=== PATIENT | male | born 1965 | race Caucasian/White ===

== ENCOUNTER → 2018-08-19 | Outpatient (CLI) | payer OTHER ==
[~2018-08-19] MED LIST: AMLO10TA8 PO; ASPI81TA59 PO; BUPIVACAINE MPF 0.25% 10 ML VIAL. ONE; CHLO4TAB20 PO; CLON0.1T PO; CYCL10TA2 PO; FLUT9.9S NS; GABA600T PO; HYDR-2145 PO; HYDR-2769 PO; IOHEXOL 180 MG/ML 10 ML VIAL. ONE; LISI-130 PO; NAPR-683 PO; SPIR25TA5 PO; VERA240C2 PO; methylPREDNISolone ACETATE 40 MG/ML VIAL. ONE; methylPREDNISolone ACETATE 80 MG/ML VIAL. ONE
--- NOTE | 2018-08-20 02:47 | PAIN ---
DATE OF SERVICE: 08/19/2018 INITIAL CONSULTATION FOR PAIN CLINIC CHIEF COMPLAINT: Low back pain. HISTORY OF PRESENT ILLNESS: This is a 52-year-old male who presents with history of pain in the low back for about 20 years, worse over the past 1 to 1-1/2 years. The patient reports no specific injury or action he is aware of, but the increasing pain in the low back. Several years ago, he did have some treatment for the back, which was helpful; in 2017 had some trigger point injections; did have radiofrequency ablation, which helped for about a year and a half he reports that was prior to the trigger points. The patient reports now the pain is returning again over the past several months, getting much worse, essentially right equal to left. The patient reports the pain is stabbing, shooting, constant, no radiation to the lower extremity, just across the low back, right equal to left essentially; worse with standing, with extension of the lumbar spine; better with forward flexion; wakes him from sleep about 2-3 times a night; does not affect his bowel or bladder control, but does affect his ability to walk, again no radiation to the lower extremities. The patient has tried chiropractic treatment as well as exercise, which she does stretching currently without significant decrease in pain. The patient has been taking cyclobenzaprine as well as hydrocodone, both of those he has taken yesterday and today, which do decrease the pain by about 50%. The patient reports a disability rate from 0-10, 10 being the worst, is 8 with family and home responsibilities, 10 with recreation, 6 with social activity, 9 with occupation and sexual behavior and 6 with self-care and life support activities, especially sleeping. The patient has had no other current treatments or therapies at this time, but again is doing some stretching and exercise on his own. The patient reports pain is better with sitting or resting, but does awaken him from sleep and is significantly increased with extension of the lumbar spine, with any type of reaching over his head or sitting upright in a chair. He is slouching because it feels better to go forward with his low back and notices his posture is changed. The patient did have MRI scan of the lumbar spine, this was 08/2014, slight annular bulging L5-S1, mild degenerative changes in the facet joints L3-L4 and L4-L5, mild degenerative changes in the adjacent facet joint L5-S1 as well. PAST MEDICAL HISTORY: Significant for hearing loss; hypertension; sleep apnea; cigarette smoking, quit 16 years ago; dizziness; stroke; arthritis; osteoporosis. PREVIOUS SURGERY: Include appendectomy and tonsillectomy in the past. TPA for stroke in 2010, which was successful. CURRENT MEDICATIONS: Include hydrocodone, verapamil, daily baby aspirin, lisinopril/hydrochlorothiazide, Naprosyn, Neurontin, chlorpheniramine, Flonase inhaler, amlodipine, clonidine, and cyclobenzaprine. ALLERGIES: THE PATIENT IS ALLERGIC TO PENICILLIN. FAMILY HISTORY: Significant for heart disease. SOCIAL HISTORY: The patient quit smoking many years ago, drinks alcohol about 8 ounces 3 times a week on average. Does not use any illegal, illicit or recreational drugs. He is and lives with his spouse, lives locally in [place], [place]. REVIEW OF SYSTEMS: The patient's review of systems is positive for those items mentioned in history of present illness. All systems reviewed and otherwise negative. It is complete, full and well documented on the patient's chart. PHYSICAL EXAMINATION: VITAL SIGNS: The blood pressure is 135/91, pulse 72, respirations 16, temperature 98.5 degrees fahrenheit, height is 5 feet 8 inches, weight is 264 pounds. GENERAL: The patient is awake, alert, oriented, appropriate, very pleasant demeanor. HEENT: Head shows normocephalic, atraumatic. Extraocular movements are intact and symmetrical. Oral cavity: Mucous membranes moist and pink. Dentition is intact. NECK: Shows anterior throat supple without palpable lymphadenopathy noted. Swallow reflex symmetrical. CHEST: Shows normal with inspection. Breath sounds clear to auscultation bilaterally. HEART: Shows S1, S2 clear. No murmurs auscultated. ABDOMEN: Obese, soft, nontender, nondistended. No palpable organomegaly is noted. No rebound or guarding demonstrated. BACK: Shows spine grossly in the midline, slight exaggerated thoracic kyphosis, normal cervical lordotic curvature. Lumbar lordotic curvature is slightly flattened as well. The patient's lumbar paraspinous muscle shows symmetrical on inspection; with palpation shows some moderate tenderness inferiorly bilaterally, but only diffusely without radiation. No trigger points, no specific radiation of pain, no tenderness over the spinous processes, sacrum or sacroiliac regions. The patient shows good rotation of motion, but moderate tenderness with right and left lateral rotation greater than 10 degrees and significant tenderness with extension greater than 10 degrees posteriorly, better with forward flexion at 45 degrees without significant pain reported. EXTREMITIES: Lower extremities show deep tendon reflexes at 2+ in the patellar, 1+ tendo calcaneus tendons. Motor exam is strong with 5/5 dorsiflexion, extension, quadriceps and hamstring flexion equal. Peripheral pulses are 1+ posterior tibia. No peripheral edema is noted bilaterally. Straight leg raise noted to be negative for reproduction of radicular symptoms. Gaenslen's and Dwight's maneuvers are negative bilaterally as well. Lower extremities are warm and dry to touch, equal in color and appearance. No peripheral edema noted. SKIN: The patient's skin is warm and dry, good turgor. No edema. No sores, rashes or bruising throughout. NEUROLOGIC: The patient is able to stand, stand on his toes without significant difficulty or loss of balance, walks with a normal appearing gait for short distance in the office, not using any assistive devices such as canes or walkers to ambulate. IMPRESSION: This is a 52-year-old male with: 1. Long history of low back pain, worse over the past year or so, without any specific injury or accident. 2. Old MRI scans as noted from 2014 and 2015. 3. Hypertension. 4. Sleep apnea. 5. Arthritis. PLAN: Options were discussed with the patient including conservative medical management, physical therapy and interventional techniques. He would like to pursue interventional techniques as he has done well with these in the past. We discussed lumbar facet joint injections using description as well as anatomical models to describe the procedure. Risks were then discussed including, but not limited to bleeding, infection, possibility of epidural hematoma and subsequent neurological compromise, dural puncture, headaches, spinal cord and/or nerve damage, side effects of steroid medication and poor results regarding pain control. The patient understands and wished to proceed. The patient will return to the clinic in approximately 2 weeks for followup. We did discuss potential radiofrequency ablation if the patient does very well with these as he has in the past and he has benefited from the radiofrequency ablation in the past as well. We will discuss this once the procedure is completed on followup and the patient will keep us informed and was asked to call the clinic in approximately 2-3 days with progress report at that time. DIAGNOSIS: Lumbar and lumbosacral spondylosis. PROCEDURE: Bilateral L4-L5 and L5-S1 facet joint injection using C-arm fluoroscopic guidance under sterile prep and drape using local anesthetic. MEDICATION INJECTED: A total of 120 mg Depo-Medrol plus total of 4 mL of 0.25% bupivacaine and total of 2 mL of contrast. CONDITION AT DISCHARGE: Stable. The patient tolerated the procedure well, had no complications. BONY LEON MD DR: RASHAUN/lewis JOB#: [id number] / [id number]
== END | disposition home or self-care (01) ==
LOC: PNCL 08:50
PROVIDERS: ATTEND Anesthesiology
DX: M47.817 Spondylosis without myelopathy or radiculopathy, lumbosacral region (principal); I10 Essential (primary) hypertension; M19.90 Unspecified osteoarthritis, unspecified site; G47.30 Sleep apnea, unspecified; Z88.0 Allergy status to penicillin; Z86.73 Personal history of transient ischemic attack (TIA), and cerebral infarction without residual deficits; M81.0 Age-related osteoporosis without current pathological fracture; H91.90 Unspecified hearing loss, unspecified ear; Z87.891 Personal history of nicotine dependence; Z90.49 Acquired absence of other specified parts of digestive tract; Z98.890 Other specified postprocedural states; Z79.82 Long term (current) use of aspirin; Z79.899 Other long term (current) drug therapy; Z82.49 Family history of ischemic heart disease and other diseases of the circulatory system; Z72.89 Other problems related to lifestyle
CPT/HCPCS: 64493; 64494; J1030; J1040; J3490; Q9965

== ENCOUNTER → 2018-09-03 | Outpatient (CLI) | payer OTHER ==
[~2018-09-03] MED LIST changes: -IOHEXOL 180 MG/ML 10 ML VIAL. ONE; +LIDOCAINE 1% PF 2 ML VIAL. ONE; +LIDOCAINE 2% PF 5 ML VIAL. ONE
--- NOTE | 2018-09-03 23:47 | PAIN ---
DATE OF SERVICE: 09/03/2018 DIAGNOSES: Lumbar degenerative disk disease with lumbar and lumbosacral spondylosis. HISTORY OF PRESENT ILLNESS: The patient is a 52-year-old male, who returns for followup status post bilateral L4-L5 and L5-S1 facet joint injections. The patient did very well with about a 90% improvement after the last injection. The patient reports he did very well. Pain returned, however, after about 2 weeks or so. The patient reports now pain across the low back bilaterally, right equal to left, essentially worse with walking, standing and changing positions, with prolonged sitting, better with lying down, but awakening him from sleep about every 6 hours. The patient reports the pain is a 7 on a scale of 10 at its worst, 5 on average, 4 at its least, and is a 5 today. The patient reports sharp, shooting, stabbing, becoming more severe with sitting and radiating across the low back, but not into the lower extremity significantly. The patient reports no new motor or sensory deficits. No new bowel or bladder incontinence or other complaints. PHYSICAL EXAMINATION: VITAL SIGNS: The patient's blood pressure is 125/87, pulse 83, respirations 16, temperature 98.2 degrees Fahrenheit, weight is 259 pounds. GENERAL: The patient is awake, alert, oriented, appropriate, very pleasant demeanor. HEENT: Shows normocephalic, atraumatic. Extraocular movements are intact and symmetrical. Oral cavity: Mucous membranes moist and pink. Dentition is intact. NECK: Shows anterior throat supple without palpable lymphadenopathy noted. Swallow reflex is symmetrical. CHEST: Shows normal on inspection. Breath sounds are clear to auscultation bilaterally. HEART: Shows S1 and S2 clear. No murmurs auscultated. ABDOMEN: Soft, nontender and nondistended. No palpable organomegaly is noted. No rebound or guarding demonstrated. BACK: Shows spine grossly in the midline. Normal appearing thoracic kyphosis and lumbar lordotic curvature. Lumbar paraspinous muscle shows symmetrical on inspection. On palpation shows some moderate tenderness diffusely, but only diffusely without significant radiation. The patient has good rotational motion with some moderate tenderness with right and left lateral rotation greater than 10 degrees as well as significant tenderness with extension greater than 10 degrees posteriorly, but better with forward flexion, with decreased pain at 45 degrees. EXTREMITIES: The patient's lower extremities shows deep tendon reflexes at 2+ in the patellar, 1+ tendo calcaneus tendons and equal. Motor exam is strong with 5/5 dorsiflexion, extension, quadriceps and hamstring flexion. Peripheral pulses are 1+ posterior tibia. No peripheral edema is noted bilaterally. Options were discussed with the patient. The patient's old chart was reviewed as was his current medication regimen updated. Current review of systems is updated today as well. We will proceed with radiofrequency ablation of the bilateral L4-L5 and L5-S1 medial branches. Risks were again discussed including but not limited to bleeding, infection, possibility of epidural hematoma and subsequent neurological compromise, dural puncture, headaches, spinal cord and/or nerve damage, potential damage from thermal ablation to surrounding structures as well as permanent motor damage as well as poor results regarding pain control and exposure to fluoroscopy. The patient understands and wished to proceed. The patient will return to the clinic in approximately 3 weeks for followup, was counseled on return appointment, activity level and side effects to be aware of. DIAGNOSIS: Lumbar and lumbosacral spondylosis. PROCEDURE: Bilateral L4-L5 and L5-S1 medial branch radiofrequency ablation using C-arm fluoroscopic guidance under sterile prep and drape using local anesthetic. MEDICATION INJECTED: A total of 6 mL of 2% lidocaine after motor testing and prior to radiofrequency ablation, 1 mL at each level after negative aspiration, a total of 6 mL of 0.25% bupivacaine and 120 mg Depo-Medrol after radiofrequency ablation. CONDITION AT DISCHARGE: Stable. The patient tolerated the procedure well, had no complications. Please see radiofrequency flowsheet for location, levels, times, temperature, impedance, etc. BONY LEON MD DR: RASHAUN/lewis JOB#: [id number] / [id number]
== END | disposition home or self-care (01) ==
LOC: PNCL 12:34
PROVIDERS: ATTEND Anesthesiology
DX: M47.817 Spondylosis without myelopathy or radiculopathy, lumbosacral region (principal); M51.36 Other intervertebral disc degeneration, lumbar region; Z88.0 Allergy status to penicillin
CPT/HCPCS: 64635; 64636; J1030; J1040; J2001; J3490

== ENCOUNTER → 2019-05-03 | Outpatient (CLI) | payer OTHER ==
[~2019-05-03] MED LIST changes: +IOHEXOL 180 MG/ML 10 ML VIAL. ONE; -LIDOCAINE 1% PF 2 ML VIAL. ONE; -LIDOCAINE 2% PF 5 ML VIAL. ONE
--- NOTE | 2019-05-03 08:44 | PAIN ---
DATE OF SERVICE: 05/03/2019 PROGRESS NOTE FOR PAIN CLINIC DIAGNOSES: Lumbar degenerative disk disease and lumbar and lumbosacral spondylosis. HISTORY OF PRESENT ILLNESS: The patient is a 53-year-old male who returns for followup status post radiofrequency ablation and facet joint injections, last seen 09/03/2018. The patient did very well with about 75% improvement for 3-4 months after the injection. The patient reports the pain is returning now over the past 2-3 weeks in the low back and into the posterior gluteus bilaterally across the low back, most significantly, worse with walking, standing, change in positions, wakes him from sleep at least 1-2 hours every night. The patient reports that 10 on a scale of 10 at its worst over the past week, 8 on average, 5 at its least and is an 8 today. The patient reports it is sharp, shooting, stabbing, severe, unbearable, radiating across the low back, worse with standing and extension, especially. The patient reports that time he gets out of his truck, his pain is significant after he has been sitting for prolonged periods, greater than an hour or so. The patient reports no new motor or sensory deficits, no new bowel or bladder incontinence, but significant pain across the low back, very similar to that was last spring. PHYSICAL EXAMINATION: VITAL SIGNS: The patient's blood pressure is 125/83, pulse 73, respirations 18, temperature 98.7 degrees Fahrenheit, height is 5 feet 8 inches, weight is 268 pounds. GENERAL: The patient is awake, alert, oriented, appropriate, very pleasant demeanor. HEENT: Shows normocephalic, atraumatic. Extraocular movements are intact and symmetrical. Oral cavity shows mucous membranes moist and pink. Dentition is intact. NECK: Shows anterior throat supple without palpable lymphadenopathy noted. CHEST: Shows normal on inspection. Breath sounds are clear bilaterally. HEART: Shows S1, S2 clear. No murmurs auscultated. ABDOMEN: Obese and soft, nontender, nondistended. No palpable organomegaly is noted. No rebound or guarding demonstrated. BACK: The patient's back shows a slight exaggeration of thoracic kyphosis and minor flattening of lumbar lordotic curvature. Lumbar paraspinous muscle shows symmetrical on inspection, with palpation shows some moderate tenderness diffusely bilaterally and diffusely without significant radiation. The patient shows good rotational motion, but significant tenderness with extension of the lumbar spine as well as significant pain with axial loading of the lumbar spine, better with forward flexion, which was performed to 45 degrees without significant difficulty. Right and left lateral rotation shows some moderate tenderness diffusely bilaterally, right equal to left essentially but with a moderate increase in pain as well. EXTREMITIES: The patient's lower extremities show deep tendon reflexes 2+ in the patellar, 1+ tendo-calcaneus tendons. Motor exam is strong with 5/5 dorsiflexion, extension, quadriceps and hamstring flexion. Peripheral pulses are 1+ posterior tibia. No peripheral edema is noted bilaterally. Options were discussed with the patient. The patient's old chart was reviewed as his current medication regimen updated. Current review of systems updated today as well. We will proceed today with bilateral L4-L5 and L5-S1 facet joint injections using fluoroscopic guidance. Risks were again discussed including, but not limited to bleeding, infection, possibility of epidural hematoma, subsequent neurological compromise, dural puncture, headaches, spinal cord and/or nerve damage, side effects of steroid medication and poor results regarding pain control. The patient understands and wished to proceed. The patient will return to clinic in approximately 2 weeks for followup. We did discuss potential radiofrequency ablation in the future as well as he did very well with this in the past. We will see how he does with the injections today and follow up for potential radiofrequency ablation as well. DIAGNOSIS: Lumbar degenerative disk disease with lumbar and lumbosacral spondylosis. PROCEDURE: Bilateral L4-L5 and L5-S1 facet joint injections using C-arm fluoroscopic guidance under sterile prep and drape using local anesthetic. MEDICATION INJECTED: A total of 120 mg Depo-Medrol plus 4 mL of 0.25% bupivacaine and 2 mL total of contrast. CONDITION AT DISCHARGE: Stable. The patient tolerated procedure well, had no complications. BONY LEON MD DR: RASHAUN/lewis JOB#: [id number] / [id number]
== END ==
LOC: PNCL 07:23
PROVIDERS: ATTEND Anesthesiology
DX: M51.17 Intervertebral disc disorders with radiculopathy, lumbosacral region (principal); M47.817 Spondylosis without myelopathy or radiculopathy, lumbosacral region
CPT/HCPCS: 64493; 64494; J1030; J1040; J3490; Q9965

== ENCOUNTER → 2019-05-25 | Outpatient (CLI) | payer OTHER ==
[~2019-05-25] MED LIST changes: +LIDOCAINE 1% PF 2 ML VIAL. ONE; +LIDOCAINE 2% PF 5 ML VIAL. ONE
--- NOTE | 2019-05-26 00:05 | PAIN ---
DATE OF SERVICE: 05/25/2019 PROGRESS NOTE FOR PAIN CLINIC DIAGNOSES: Lumbar degenerative disk disease and lumbar and lumbosacral spondylosis. HISTORY OF PRESENT ILLNESS: The patient is a 53-year-old male who returns for followup status post previous lumbar facet joint injections with good results and status post radiofrequency ablation on 09/03/2018 with about 75% improvement as well for 3-4 months following the injection. The patient had the pain returning. We discussed this with him on 05/03/2019 and we will repeat radiofrequency ablation. He has received approval with his insurance provider and would like to proceed. He still has some pain in the low back and mid back, right essentially equal to left, but present bilaterally. The patient reports his left side is slightly worse with walking, standing, changing positions, especially with extension of the lumbar spine and axial loading of the lumbar vertebrae and facets. The patient reports his pain is a 10 on a scale of 10 at its worst over the past week, 7 on average, 5 at its least and is a 7 today, pressure, aching, sharp, dull, shooting across the low back, severe stabbing and radiating in the back itself, but not into the lower extremities. The patient reports no new motor or sensory deficits. Reports it is better with sitting or lying down, generally does not awaken him from sleep at night. PHYSICAL EXAMINATION: VITAL SIGNS: The patient's blood pressure is 164/61, pulse is 87, respirations 16, temperature 98.1 degrees Fahrenheit, height is 5 feet 8 inches, weight is 269 pounds. GENERAL: The patient is awake, alert, oriented, appropriate, very pleasant demeanor. HEENT: Shows normocephalic, atraumatic. Extraocular movements are intact and symmetrical. Oral cavity shows mucous membranes are moist and pink. Dentition is intact. NECK: Shows anterior throat supple without palpable lymphadenopathy noted. Swallow reflex symmetrical. CHEST: Shows normal on inspection. Breath sounds are clear bilaterally. HEART: Shows S1, S2 clear. No murmurs auscultated. ABDOMEN: Soft, nontender, nondistended. No palpable organomegaly is noted. No rebound or guarding demonstrated. BACK: Shows spine grossly in the midline. Normal appearing thoracic kyphosis and some minor flattening of lumbar lordotic curvature. Lumbar paraspinous musculature shows symmetrical on inspection, on palpation shows some moderate tenderness diffusely bilaterally, going diffusely without significant radiation. The patient has good rotational motion of lumbar spine, both laterally as well as extension and flexion with some moderate tenderness with extension and relieving with forward flexion at 45 degrees, right and left lateral rotation shows moderate tenderness bilaterally as well 10 degrees right and left essentially equal. EXTREMITIES: Lower extremities show deep tendon reflexes at 2+ in the patellar, 1+ tendo-calcaneus tendons. Motor exam is strong with 5/5 dorsiflexion, extension, quadriceps and hamstring flexion symmetrical. Peripheral pulses are 1+ posterior tibia. No peripheral edema is noted bilaterally. PLAN: Options were discussed with the patient. The patient's old chart was reviewed as his current medication regimen updated. Current review of systems is updated today as all. We will proceed with bilateral L4-L5 and L5-S1 facet medial branch radiofrequency ablation. Risks were again discussed including, but not limited to bleeding, infection, possibility of epidural hematoma, subsequent neurological compromise, dural puncture, headaches, spinal cord and/or nerve damage, possible thermal damage to the surrounding nerves including motor nerves with permanent damage and motor damage as well as poor results regarding pain control and exposure of fluoroscopy. The patient understands and wished to proceed. The patient will return to clinic in approximately 3 weeks for followup. He was counseled on return appointment, activity level and side effects to be aware of. DIAGNOSIS: Lumbar and lumbosacral spondylosis. PROCEDURE: Radiofrequency ablation bilaterally at L4-L5 and L5-S1 facet medial branches under sterile prep and drape using local anesthetic. MEDICATION INJECTED: A total of 6 mL of 0.25% bupivacaine after radiofrequency ablation combined with 120 mg total of Depo-Medrol, also 2% lidocaine injected 6 mL total of 1 mL at each level after motor testing, but prior to radiofrequency ablation. Please see radiofrequency flow sheet for times, levels, impedances, temperatures and durations. CONDITION AT DISCHARGE: Stable. The patient tolerated the procedure well, had no complications. BONY LEON MD DR: RASHAUN/lewis JOB#: [id number] / [id number]
== END | disposition home or self-care (01) ==
LOC: PNCL 12:53
PROVIDERS: ATTEND Anesthesiology
DX: M51.36 Other intervertebral disc degeneration, lumbar region (principal); M47.816 Spondylosis without myelopathy or radiculopathy, lumbar region; Z98.890 Other specified postprocedural states; Z88.0 Allergy status to penicillin
CPT/HCPCS: 64635; 64636; J1030; J1040; J2001; J3490; Q9965

== ENCOUNTER → 2019-06-22 | Outpatient (CLI) | payer OTHER ==
[~2019-06-22] MED LIST changes: -BUPIVACAINE MPF 0.25% 10 ML VIAL. ONE; -IOHEXOL 180 MG/ML 10 ML VIAL. ONE; -LIDOCAINE 1% PF 2 ML VIAL. ONE; -LIDOCAINE 2% PF 5 ML VIAL. ONE; -methylPREDNISolone ACETATE 40 MG/ML VIAL. ONE; -methylPREDNISolone ACETATE 80 MG/ML VIAL. ONE
--- NOTE | 2019-06-22 12:45 | PAIN ---
DATE OF SERVICE: 06/22/2019 PROGRESS NOTE FOR PAIN CLINIC DIAGNOSES: Lumbar degenerative disk disease with lumbar and lumbosacral spondylosis. HISTORY OF PRESENT ILLNESS: The patient is a 53-year-old male who returns for followup status post radiofrequency ablation, bilateral L4-L5 and L5-S1 medial branches. The patient reports about 75% improvement overall increasing his activity with greater ease and comfort, has been working at full capacity with greater ease as well. The patient reports he is sleeping better at night. Reports he is very pleased with his progress. The patient reports he has pain in his right knee; however, rates it at 10 on a scale of 10 over the past week. His back pain; however, is about a 5 on average and a 3 at its least and is a 5 today. The patient reports it is aching in the knee and some dull pain in the back, but that is almost the pain in his knee is shooting, stabbing, severe and unbearable and the back is just aching and dull and fairly well controlled. The patient reports no new motor or sensory deficits, no new bowel or bladder incontinence or other complaints. PHYSICAL EXAMINATION: VITAL SIGNS: The patient's blood pressure 130/85, pulse 74, respirations are 18, temperature is 98.3 degrees Fahrenheit, height is 5 feet 8 inches, weight is 269 pounds. GENERAL: The patient is awake, alert, oriented, appropriate, very pleasant demeanor. HEENT: Shows normocephalic, atraumatic. Extraocular movements are intact and symmetrical. Oral cavity shows mucous membranes moist and pink. Dentition is intact. NECK: Shows anterior throat supple without palpable lymphadenopathy noted. Swallow reflex symmetrical. CHEST: Shows normal on inspection. Breath sounds clear. HEART: Shows S1, S2 clear. ABDOMEN: Soft, nontender. BACK: Shows spine grossly in midline. Lumbar paraspinous muscle shows symmetrical on inspection, with palpation shows some very mild tenderness in the low lumbar distribution only without radiation. The patient shows full rotational motion of lumbar spine with some minor tenderness with extension, but not with forward flexion, right and left lateral rotation is nontender as well past 10 degrees. EXTREMITIES: The patient's lower extremities show deep tendon reflexes at 2+ in the patellar, 1+ in the tendo-calcaneus tendons. Motor exam is strong with 5/5 dorsiflexion, extension, quadriceps and hamstring flexion and symmetrical. Peripheral pulses are 1+. No peripheral edema is noted. Options were discussed with the patient. The patient's old chart was reviewed as his current medication regimen updated. Current review of systems updated today as well. We will hold on any further injections at this time. The patient was encouraged to increase his activity as tolerated with caution as well with the low back with lifting and stretching exercises. The patient is also having significant pain in his knees wearing a knee brace on his right knee today and is following up with his orthopedic surgeon regarding a brace for the left knee as well and if possible replacement surgery in the future also. BONY LEON MD DR: RASHAUN/lewis JOB#: [id number] / [id number]
== END | disposition home or self-care (01) ==
LOC: PNCL 11:12
PROVIDERS: ATTEND Anesthesiology
DX: M47.817 Spondylosis without myelopathy or radiculopathy, lumbosacral region (principal); M51.36 Other intervertebral disc degeneration, lumbar region
CPT/HCPCS: G0463

== ENCOUNTER → 2020-01-07 | Outpatient (CLI) | payer OTHER ==
[~2020-01-07] MED LIST changes: +BUPIVACAINE MPF 0.25% 10 ML VIAL. ONE; +IOHEXOL 180 MG/ML 10 ML VIAL. ONE; +methylPREDNISolone ACETATE 40 MG/ML VIAL. ONE; +methylPREDNISolone ACETATE 80 MG/ML VIAL. ONE
--- NOTE | 2020-01-07 12:04 | PDOC ---
Progress Note - Pain Clinic Date of Service: DOS: DATE: 01/07/20 TIME: 12:00 Diagnosis: Dx: Lumbar degenerative disc disease with lumbar and lumbosacral spondylosis History or Present Illness: HPI: 54-year-old male returns follow-up status post bilateral lumbar facet radi ofrequency ablation May 25, 2019. Patient was about 75% improvement the pain is now returning over the past 3 to 4 weeks in the low back bilaterally right essentially equal to left worse with activity walking standing changing position especially with axial loading and extension of the lumbar spine when he is working bending and standing up again. Patient reports pain up to this point was doing very well increase his activity walking doing work activities household activities greater ease and comfort travel with greater ease and comfort patient reports now is returning in the low back bilaterally rates a 10 on scale 10 is worse over the past week 10 on average 8 its least is a 10 today patient was aching and sharp shooting across the back stabbing constant and severe at times. Patient reports no new motor or sensory deficits no new bowel or bladder incontinence or other complaints. Physical Exam: VS: Blood pressure is 130/83 pulse 74 respirations 18 temperature is 98.6 F height is 5 foot 8 inches weight is 275 pounds PE: PHYSICAL EXAMINATION: GENERAL: The patient is awake, alert, oriented, appropriate, very pleasant demeanor HEENT: Shows normocephalic, atraumatic. Extraocular movements are intact and symmetrical. Oral cavity: Mucous membranes moist and pink. NECK: Shows anterior throat supple without palpable lymphadenopathy noted. Swallow reflex symmetrical. CHEST: Shows normal on inspection. Breath sounds are clear bilaterally, no rales rhonchi or wheezes auscultated. HEART: Shows S1, S2 clear. No murmurs auscultated. ABDOMEN: Soft, nontender, nondistended, obese. No palpable organomegaly is noted. No rebound or guarding demonstrated. BACK: Shows spine grossly in the midline. Normal-appearing cervical lordotic curvature. There is slightly increased thoracic kyphosis, some minor flattening of the lumbar lordotic curvature. Lumbar paraspinous muscles show symmetrical on inspection, on palpation shows some moderate tenderness diffusely throughout the upper, middle and lower distribution of the paraspinous muscles bilaterally, but without specific trigger points, without radiation of pain. The patient has good rotational motion of the lumbar spine, but with significant pain with extension of the lumbar spine past 10 degrees better with forward flexion 45 degrees but still some mild pain right left lateral rotation shows moderate pain bilaterally in the low back itself but without radiation 10 degrees right and the left. No tenderness over the spinous processes, sacrum or sacroiliac regions. EXTREMITIES: Lower extremities show deep tendon reflexes 2+ in the patellar and tendo calcaneus tendons. Motor exam is 5 on a scale of 5 with right dorsiflexion, extension, quadriceps and hamstring flexion and 5/5 on the left. Peripheral pulses are 1+ posterior tibial. No peripheral edema is noted bilaterally. Lower extremities are warm and dry to touch, equal in color and appearance. SKIN: Shows warm and dry, good turgor. No edema. No sores, rashes or bruising throughout. Procedure: Procedure: Options were discussed with the patient. Patient will chart reviewed his his current medication regimen updated current review of systems updated today as well. We will proceed with bilateral facet joint injections at the L4-5 and L5- S1 levels. Risks were discussed including but not limited to: Bleeding, infection, possibility of epidural hematoma and subsequent neurological compromise, dural puncture, headaches, spinal cord and/or nerve damage, side effects of steroid medication, and poor results regarding pain control. Patient understands wished to proceed. Patient return to clinic in approximately 2 weeks for follow-up. We did discuss potential radiofrequency ablation if patient has good decrease in pain as he has had in the past with the injections today. Medication Injected: Med Injected: Under sterile prep and drape using C-arm fluoroscopic guidance AP and lateral and oblique views, bilateral L4-5 and L5-S1 facet joint injections, medications injected: 120 mg Depo-Medrol +4 cc 0.25% bupivacaine +2 cc contrast. Condition at discharge stable patient tolerated the procedure well and no complications. Condition at Discharge: Condition at Discharge: Condition at discharge is stable, patient tolerated procedure well, had no complications. BONY LEON MD Jan 07, 2020 12:04
== END | disposition home or self-care (01) ==
LOC: PNCL 10:52
PROVIDERS: ATTEND Anesthesiology
DX: M51.16 Intervertebral disc disorders with radiculopathy, lumbar region (principal); M47.817 Spondylosis without myelopathy or radiculopathy, lumbosacral region; M47.816 Spondylosis without myelopathy or radiculopathy, lumbar region; I10 Essential (primary) hypertension; Z88.0 Allergy status to penicillin; Z79.82 Long term (current) use of aspirin; Z79.899 Other long term (current) drug therapy
CPT/HCPCS: 64635; 64636; J1030; J1040; J3490; Q9965

== ENCOUNTER → 2020-01-25 | Outpatient (CLI) | payer OTHER ==
[~2020-01-25] MED LIST changes: -IOHEXOL 180 MG/ML 10 ML VIAL. ONE; +LIDOCAINE 1% PF 2 ML VIAL. ONE; +LIDOCAINE 2% PF 5 ML VIAL. ONE
--- NOTE | 2020-01-25 14:41 | PDOC ---
Progress Note - Pain Clinic Date of Service: DOS: DATE: 01/25/20 TIME: 14:34 Diagnosis: Dx: Lumbar and lumbosacral spondylosis History or Present Illness: HPI: 54-year-old male returns status post lumbar facet medial branch blocks with approximate 90% improvement 2 to 3 weeks following his last injections. Patient reports he did very well with increased activity greater ease and comfort walking greater distances doing household activities work activities with much greater ease sleeping better at night as well. Patient ports pain began to return now over the past week with pain across the low back bilaterally somewhat worse on the right than the left but present bilaterally without radiation into the lower extremities. Patient which is aching sharp shooting stabbing constant severe radiating across the back but not into the lower extremities and can be unbearable with extended standing walking. Patient reports better with sitting or laying down but has been waking from sleep about every 4-5 hours over the past week or so. Patient reports no new motor or sensory deficits no new bowel or bladder incontinence or other complaints. Physical Exam: VS: Pressure is 133/80 pulse 90 respirations 20 temperature is 98.4 F weight is 269 pounds PE: PHYSICAL EXAMINATION: GENERAL: The patient is awake, alert, oriented, appropriate, very pleasant demeanor HEENT: Shows normocephalic, atraumatic. Extraocular movements are intact and symmetrical. NECK: Shows anterior throat supple without palpable lymphadenopathy noted. Swallow reflex symmetrical. CHEST: Shows normal on inspection. Breath sounds are clear bilaterally, no rales rhonchi or wheezes HEART: Shows S1, S2 clear. No murmurs auscultated. ABDOMEN: Soft, nontender, nondistended ,obese. No palpable organomegaly is noted. No rebound or guarding demonstrated. BACK: Shows spine grossly in the midline. Normal-appearing cervical lordotic curvature. There is slightly increased thoracic kyphosis, some minor flattening of the lumbar lordotic curvature. Lumbar paraspinous muscles show symmetrical on inspection, on palpation shows some moderate tenderness diffusely throughout the upper, middle and lower distribution of the paraspinous muscles bilaterally without radiation of pain. The patient has good rotational motion of the lumbar spine, with moderate tenderness bilaterally with greater than 10 degrees right and left lateral rotation as well as significant increase in pain with extension and axial loading of the lumbar spine greater than 10 degrees decreased with forward flexion at 45 degrees performed without difficulty. No tenderness over the spinous processes, sacrum or sacroiliac regions. EXTREMITIES: Lower extremities show deep tendon reflexes 2+ in the patellar and tendo calcaneus tendons. Motor exam is 5 on a scale of 5 with right dorsiflexion, extension, quadriceps and hamstring flexion and 5/5 on the left. Peripheral pulses are 1+ posterior tibial. No peripheral edema is noted bilaterally. Lower extremities are warm and dry to touch, equal in color and appearance. SKIN: Shows warm and dry, good turgor. No edema. No sores, rashes or bruising throughout. Procedure: Procedure: Options were discussed with the patient. Patient's old chart was reviewed his current medication regimen updated current review of systems updated today as well. We will proceed with bilateral radiofrequency ablation of the L4-5, and L5-S1 medial branches. Risks were discussed including but not limited to: Bleeding, infection, possibility of epidural hematoma and subsequent neurological compromise, dural puncture, headaches, spinal cord and/or nerve damage, side effects of steroid medication, potential thermal injury to the surrounding structures as well as permanent motor damage, and poor results regarding pain control. Patient understands wished to proceed. Patient will return to clinic in approximately 4 weeks for follow-up was counseled as to return appointment activity level and side effects to be aware of. Medication Injected: Med Injected: Under sterile prep and drape patient in prone position using C-arm fluoroscopic guidance patient's lumbar spine was visualized in both AP oblique and lateral views using 1% lidocaine to topically anesthetize the areas overlying the L3-4, L4-5 and L5-S1 facet joints at the point of the medial branches. Using a 22-ga uge insulated radiofrequency needle with curved tips and stylette, the needles were advanced to contact the region of the facet with the medial branch targets. This was repeated at the L3-4 L4-5 and L5-S1 levels. Stylette is removed and using radiofrequency probe inserted into each needle individually at each level and then motor tested with no motor stimulation of the lower extremity. Patient did have some multifidus musculature contraction in the lumbar spine only but without radiation. At this time 1 cc of 2% lidocaine was then injected in each needle after motor testing but prior to radiofrequency ablation. Needle position was confirmed continuously throughout the radiofrequency ablation with both AP oblique and lateral views at each level. At this time radiofrequency ablation was carried out each level for 60 seconds at 80 C x 2 at each level with the tip of the needle turned 90 degrees after the first 60 seconds and then subsequent 60 seconds of radiofrequency ablation. Once radiofrequency ablation was completed solution containing 0.25% bupivacaine 1 cc and 20 mg Depo-Medrol was injected each level. Needle was then withdrawn. The procedure was repeated for the contralateral side as described as well. Patient had no paresthesias throughout the procedure no radiation of pain into the lower extremities, no lower extremity motor response with motor testing bilaterally. Condition at Discharge: Condition at Discharge: Condition at discharge stable patient tolerated procedure well had no complications. BONY LEON MD Jan 25, 2020 14:41
== END | disposition home or self-care (01) ==
LOC: PNCL 12:54
PROVIDERS: ATTEND Anesthesiology
DX: M47.817 Spondylosis without myelopathy or radiculopathy, lumbosacral region (principal); Z88.0 Allergy status to penicillin; Z79.82 Long term (current) use of aspirin; Z79.899 Other long term (current) drug therapy
CPT/HCPCS: 64635; 64636; J1030; J1040; J3490

== ENCOUNTER → 2020-02-22 | Outpatient (CLI) | payer OTHER ==
[~2020-02-22] MED LIST changes: +AMLO-187 PO; -AMLO10TA8 PO; -BUPIVACAINE MPF 0.25% 10 ML VIAL. ONE; -LIDOCAINE 1% PF 2 ML VIAL. ONE; -LIDOCAINE 2% PF 5 ML VIAL. ONE; -methylPREDNISolone ACETATE 40 MG/ML VIAL. ONE; -methylPREDNISolone ACETATE 80 MG/ML VIAL. ONE
--- NOTE | 2020-02-22 10:37 | PDOC ---
Progress Note - Pain Clinic Date of Service: DOS: DATE: 02/22/20 TIME: 10:34 Diagnosis: Dx: Lumbar degenerative disc disease with lumbar and lumbosacral spondylosis History or Present Illness: HPI: 54-year-old male returns follow-up status post radiofrequency ablation medial branches of the L4-5 and L5-S1 levels bilaterally. Patient reports doing very well about 90% improvement after the radiofrequency ablation with still good lasting pain relief in the low back patient reports he can increase activity with greater ease and comfort doing household activities work activities walking with greater ease and comfort sleeping much better does not awaken her from sleep patient reports his pain is a 7 on scale 10 is worse over the past week 2 on average 1 its least is a 1 today. Patient ports is aching and dull in the low back radiating bilaterally in the back but not into the lower extremities. Patient reports no new motor or sensory deficits no new bowel or bladder incontinence is very pleased with his progress. Physical Exam: VS: Blood pressure is 120/74 pulse 79 respirations 18 temperature 98.0 F weight is 265 pounds PE: PHYSICAL EXAMINATION: GENERAL: The patient is awake, alert, oriented, appropriate, very pleasant de meanor HEENT: Shows normocephalic, atraumatic. Extraocular movements are intact and symmetrical. NECK: Shows anterior throat supple without palpable lymphadenopathy noted. Swallow reflex symmetrical. CHEST: Shows normal on inspection. Breath sounds are clear bilaterally. HEART: Shows S1, S2 clear. No murmurs auscultated. ABDOMEN: Soft, nontender, nondistended, obese. No palpable organomegaly is noted. No rebound or guarding demonstrated. BACK: Shows spine grossly in the midline. Normal-appearing cervical lordotic curvature. There is slightly increased thoracic kyphosis, some minor flattening of the lumbar lordotic curvature. Lumbar paraspinous muscles show symmetrical on inspection, on palpation shows some moderate tenderness diffusely throughout the upper, middle and lower distribution of the paraspinous muscles bilaterally but without specific trigger points, without radiation of pain. The patient has good rotational motion of the lumbar spine, both laterally as well as extension and flexion without significant difficulty, and with only mild pain with extension and axial loading of the lumbar spine. No tenderness over the spinous processes, sacrum or sacroiliac regions. EXTREMITIES: Lower extremities show deep tendon reflexes 2+ in the patellar and tendo calcaneus tendons. Motor exam is 5 on a scale of 5 with right dorsiflexion, extension, quadriceps and hamstring flexion and 5/5 on the left. Peripheral pulses are 1+ posterior tibial. No peripheral edema is noted bilaterally. Lower extremities are warm and dry to touch, equal in color and appearance. SKIN: Shows warm and dry, good turgor. No edema. No sores, rashes or bruising throughout. Procedure: Procedure: Options were discussed with the patient. Patient will chart was reviewed his his current medication regimen updated current review of systems updated today as well. We will hold on any further procedures at this time as patient doing quite well with the results from his radiofrequency ablation. Patient will follow-up at this time on as-needed basis and was counseled as to activity level as well as daily exercise routine stretching and strengthening. Medication Injected: Med Injected: None Condition at Discharge: Condition at Discharge: Patient discharge is stable BONY LEON MD Feb 22, 2020 10:37
== END ==
LOC: PNCL 09:44
PROVIDERS: ATTEND Anesthesiology
DX: M51.16 Intervertebral disc disorders with radiculopathy, lumbar region (principal); M47.816 Spondylosis without myelopathy or radiculopathy, lumbar region; M47.817 Spondylosis without myelopathy or radiculopathy, lumbosacral region; I10 Essential (primary) hypertension; Z88.0 Allergy status to penicillin; Z79.82 Long term (current) use of aspirin; Z79.899 Other long term (current) drug therapy
CPT/HCPCS: 99212; G0463

== ENCOUNTER → 2020-03-20 | Outpatient (CLI) | payer OTHER ==
[~2020-03-20] MED LIST changes: +BUPIVACAINE MPF 0.25% 10 ML VIAL. ONE; +IOHEXOL 180 MG/ML 10 ML VIAL. ONE; +methylPREDNISolone ACETATE 40 MG/ML VIAL. ONE; +methylPREDNISolone ACETATE 80 MG/ML VIAL. ONE
--- NOTE | 2020-03-20 09:12 | PDOC ---
Progress Note - Pain Clinic Date of Service: DOS: DATE: 03/20/20 TIME: 09:08 Diagnosis: Dx: Lumbar and lumbosacral spondylosis Lumbar degenerative disc disease History or Present Illness: HPI: 54-year-old male returns in follow-up status post radiofrequency ablation bila teral L4-5 and L5-S1 medial branches on 02/24/2020. Patient reports did very well with near 90% improvement pain returning now over the past week to 2 weeks has been increasing his activity at work with significant physical strain on the low back. Patient ports the pain began returning gradually in the low back itself without radiation to the lower extremities. Patient rates pain is a 10 on scale 10 is worse over the past week 5 on average 3 at its least and is a 5 today patient describes aching sharp tight shooting across the back dull and tight alternating and stabbing in the back as well as worse at night been waking from sleep frequently patient ports as long as he keeps changing positions and stays on his feet it somewhat manageable but is becoming worse with activity especially with work activities. Initially patient doing very well with distance walking doing household activities work activities traveling with greater ease and comfort now the pain is returning fairly significantly especially disturbing his sleep. Patient reports no new motor or sensory deficits no new bowel or bladder incontinence. Physical Exam: VS: Blood pressure is 125/79 pulse 99 respirations are 16 temperature 90.1 F height is 5 feet 8 inches weight is 269 pounds PE: PHYSICAL EXAMINATION: GENERAL: The patient is awake, alert, oriented, appropriate, very pleasant demeanor HEENT: Shows normocephalic, atraumatic. Extraocular movements are intact and symmetrical. Oral cavity: Mucous membranes moist and pink. NECK: Shows anterior throat supple without palpable lymphadenopathy noted. Swallow reflex symmetrical. CHEST: Shows normal on inspection. Breath sounds are clear bilaterally. HEART: Shows S1, S2 clear. No murmurs auscultated. ABDOMEN: Soft, nontender, nondistended, obese. No palpable organomegaly is noted. No rebound or guarding demonstrated. BACK: Shows spine grossly in the midline. Normal-appearing cervical lordotic curvature. There is slightly increased thoracic kyphosis, some minor flattening of the lumbar lordotic curvature. Lumbar paraspinous muscles show symmetrical on inspection, on palpation shows some moderate tenderness diffusely throughout the upper, middle and lower distribution of the paraspinous muscles bilaterally, without specific trigger points, without radiation of pain. The patient has good rotational motion of the lumbar spine, both laterally as well as extension and flexion, with moderate pain with extension and axial loading the lumbar spine also slightly worse right greater than left rotation past 10 degrees but performed fully forward flexion is performed without significant difficulty. No tenderness over the spinous processes, sacrum or sacroiliac regions. EXTREMITIES: Lower extremities show deep tendon reflexes 2+ in the patellar and tendo calcaneus tendons. Motor exam is 5 on a scale of 5 with right dorsiflexio n, extension, quadriceps and hamstring flexion and 5/5 on the left. Peripheral pulses are 1+ posterior tibial. No peripheral edema is noted bilaterally. Lower extremities are warm and dry to touch, equal in color and appearance. SKIN: Shows warm and dry, good turgor. No edema. No sores, rashes or bruising throughout. Procedure: Procedure: Options discussed with the patient. Patient chart was reviewed his his current medication regimen updated current review of systems updated today as well. We will proceed with bilateral L4-5 and L5-S1 facet joint injections today with fluoroscopic guidance. Risks were discussed including but not limited to: Bleeding, infection, possibility of epidural hematoma and subsequent neurolo gical compromise, dural puncture, headaches, spinal cord and/or nerve damage, side effects of steroid medication, and poor results regarding pain control. Patient understands wished to proceed. Patient will return to clinic in approximate 2 weeks for follow-up was counseled as to return appointment activity level and side effects to be aware of. Medication Injected: Med Injected: Under sterile prep and drape using C-arm fluoroscopic guidance AP and lateral and oblique views, bilateral L4-5 and L5-S1 facet joint injections were performed, medications injected: 120 mg Depo-Medrol +4 cc 0.25% bupivacaine +2 cc contrast. Condition at discharge stable patient tolerated the procedure well and no complications. Condition at Discharge: Condition at Discharge: Condition at discharge stable, patient tolerated procedure well and had no complications. BONY LEON MD Mar 20, 2020 09:12
== END | disposition home or self-care (01) ==
LOC: PNCL 08:21
PROVIDERS: ATTEND Anesthesiology
DX: M51.36 Other intervertebral disc degeneration, lumbar region (principal); M47.817 Spondylosis without myelopathy or radiculopathy, lumbosacral region; Z79.82 Long term (current) use of aspirin; Z79.899 Other long term (current) drug therapy; Z88.0 Allergy status to penicillin
CPT/HCPCS: 64493; 64494; J1030; J1040; J3490; Q9965; 64635; 64636

== ENCOUNTER → 2020-05-05 | Outpatient (CLI) | payer OTHER ==
--- NOTE | 2020-05-05 09:41 | PDOC ---
Progress Note - Pain Clinic Date of Service: DOS: DATE: 05/05/20 TIME: 09:37 Diagnosis: Dx: Lumbar and lumbosacral spondylosis with lumbar degenerative disc disease History or Present Illness: HPI: 54-year-old male returns for follow-up status post bilateral L4-5 and L5-S1 facet joint injections most recently seen March 20, 2020. Patient reports that 80% improvement for the first month or so and the pain is gradually been returning over the past few weeks in the low back itself slightly worse on the left than the right but present bilaterally patient reports no radiation to the lower extremities is across the low back rated as a 10 on scale 10 is worse over the past week 8 on average 7 its least and is a 8 today. Patient was aching sharp tight shooting stabbing can be constant and severe across the low back worse with extension lumbar spine axial loading of the low back especially with standing for prolonged periods better with sitting but for more than about an hour the patient's pain returns. Patient ports better at night but it wakes him from sleep at least once or twice a night most nights. Patient reports no new motor or sensory deficits no new bowel or bladder incontinence or other complaints. Physical Exam: VS: Blood pressure is 149/85 pulse 80 respirations 18 temperature is 90.3 F height is 5 feet 8 inches weight is 273 pounds PE: PHYSICAL EXAMINATION: GENERAL: The patient is awake, alert, oriented, appropriate, very pleasant demeanor HEENT: Shows normocephalic, atraumatic. Extraocular movements are intact and symmetrical. Oral cavity: Mucous membranes moist and pink. NECK: Shows anterior throat supple without palpable lymphadenopathy noted. CHEST: Shows normal on inspection. Breath sounds are clear bilaterally, no rales or rhonchi. HEART: Shows S1, S2 clear. No murmurs auscultated. ABDOMEN: Soft, nontender, nondistended, obese. No palpable organomegaly is noted. BACK: Shows spine grossly in the midline. Normal-appearing cervical lordotic curvature. There is increased thoracic kyphosis, some flattening of the lumbar lordotic curvature. Lumbar paraspinous muscles show symmetrical with inspection, on palpation shows some moderate tenderness diffusely throughout the upper, middle and lower distribution of the paraspinous muscles, but without specific trigger points, without radiation of pain. The patient has good rotational motion of the lumbar spine, with increased pain noted with extension greater than 10 degrees significantly more the left than the right also with right and left lateral rotation shows significant tenderness greater than 10 degrees with rotation to the left greater than right but present bilaterally with pain experienced in all rotations except for forward flexion was performed 45 degrees without difficulty. No tenderness over the spinous processes, sacrum or sacroiliac regions. EXTREMITIES: Lower extremities show deep tendon reflexes 2+ in the patellar and tendo calcaneus tendons. Motor exam is 5 on a scale of 5 with right dorsifl exion, extension, quadriceps and hamstring flexion and 5/5 on the left. Peripheral pulses are 1+ posterior tibial. No peripheral edema is noted bilaterally. Lower extremities are warm and dry to touch, equal in color and appearance. SKIN: Shows warm and dry, good turgor. No edema. No sores, rashes or bruising throughout. Procedure: Procedure: Options were discussed with the patient. Patient chart reviewed his his current medication regimen updated current review of systems updated today as well. We will proceed with bilateral L4-5 and L5-S1 facet joint injections today with fluoroscopic guidance. Risks were discussed including but not limited to: Bleeding, infection, possibility of epidural hematoma and subsequent regina rological compromise, dural puncture, headaches, spinal cord and/or nerve damage, side effects of steroid medication, and poor results regarding pain control. Patient understands wished to proceed. Patient will return to clinic in approximately 2 weeks for follow-up, was counseled as return appointment activity level, and side effects to be aware of. Medication Injected: Med Injected: Under sterile prep and drape using C-arm fluoroscopic guidance AP and lateral and oblique views, bilateral L4-5 and L5-S1 facet joint injections were performed, medications injected: 120 mg Depo-Medrol +4 cc 0.25% bupivacaine +2 cc contrast. Condition at discharge stable patient tolerated the procedure well and no complications. Condition at Discharge: Condition at Discharge: Condition at discharge is stable, patient tolerated procedure well and had no complications. BONY LEON MD May 05, 2020 09:41
== END | disposition home or self-care (01) ==
LOC: PNCL 09:03
PROVIDERS: ATTEND Anesthesiology
DX: M47.817 Spondylosis without myelopathy or radiculopathy, lumbosacral region (principal); M51.36 Other intervertebral disc degeneration, lumbar region; Z79.82 Long term (current) use of aspirin; Z79.899 Other long term (current) drug therapy; Z88.0 Allergy status to penicillin
CPT/HCPCS: 64493; 64494; J1030; J1040; J3490; Q9965; 64635-50; 64636-50

== ENCOUNTER → 2020-06-09 | Outpatient (CLI) | payer OTHER ==
[~2020-06-09] MED LIST changes: -methylPREDNISolone ACETATE 40 MG/ML VIAL. ONE
--- NOTE | 2020-06-09 09:02 | PDOC ---
Progress Note - Pain Clinic Date of Service: DOS: DATE: 06/09/20 TIME: 08:56 Diagnosis: Dx: Right biceps tendinitis with right shoulder joint pain Lumbar degenerative disc disease with lumbar and lumbosacral spondylosis History or Present Illness: HPI: 54-year-old male returns follow-up status post bilateral lumbar facet medial branch blocks. Patient reports did very well about 80% improvement for several weeks after the injection but the pain is returning in the low back bilaterally patient's chief complaint today however is his right shoulder joint which is very painful with any rotation of motion or weight lifting weightbearing repetitive movements difficult to drive the car with the arm as well patient reports awakening from sleep at night better 5 to 6 hours of the right shoulder and significant tenderness of the anterior aspect of the shoulder with any movement or weight resistance. Patient reports it is aching and sharp tight and shooting in the arm radiating to the anterior biceps with stabbing pain that can be constant and severe with repetitive movement and weightbearing. Patient rates the pain is a 10 on scale 10 is worse on average 3 its least is an 8 today. Patient's low back shows significant tenderness with rotation of motion as well as extension but much better after the last injection but returning significantly bilaterally. Patient reports no new motor or sensory deficits no new bowel or bladder incontinence. Physical Exam: VS: Blood pressure is 129/83 pulse 75 respirations 18 temperature is 98.8 F height is 6 foot weight is 272 pounds PE: PHYSICAL EXAMINATION: GENERAL: The patient is awake, alert, oriented, appropriate, very pleasant demeanor HEENT: Shows normocephalic, atraumatic. Extraocular movements are intact and symmetrical. NECK: Shows anterior throat supple without palpable lymphadenopathy noted. Swallow reflex symmetrical. CHEST: Shows normal on inspection. Breath sounds are clear bilaterally. HEART: Shows S1, S2 clear. No murmurs auscultated. ABDOMEN: Soft, nontender, nondistended, obese. No palpable organomegaly is noted. BACK: Shows spine grossly in the midline. Normal-appearing cervical lordotic curvature. There is increased thoracic kyphosis, some flattening of the lumbar lordotic curvature. Lumbar paraspinous muscles show symmetrical on inspection, on palpation shows some moderate tenderness diffusely throughout the upper, middle and lower distribution of the paraspinous muscles bilaterally and also into the lower thoracic paraspinous musculature, firm and tender, but without specific trigger points, without radiation of pain. The patient has good rotational motion of the lumbar spine, with moderate tenderness with the right and left lateral rotation greater than 10 degrees as well as significant tenderness with extension at 10 degrees and axial loading of low back but better with 45 degrees forward flexion. No tenderness over the spinous processes, sacrum or sacroiliac regions. EXTREMITIES: Lower extremities show deep tendon reflexes 2+ in the patellar and tendo calcaneus tendons. Motor exam is 5 on a scale of 5 with right dorsiflexion, extension, quadriceps and hamstring flexion and 5/5 on the left. Peripheral pulses are 1+ posterior tibial. No peripheral edema is noted bilaterally. Lower extremities are warm and dry to touch, equal in color and appearance. 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 With palpation of the right shoulder shows significant tenderness over the anterior aspect of the deltoid and consistent with the biceps tendon insertion on the right side very tender with palpation and some minor radiation into the bicep muscle itself. Left side is nontender. SKIN: Shows warm and dry, good turgor. No edema. No sores, rashes or bruising throughout. Procedure: Procedure: Options were discussed with the patient. Patient chart reviews his current medication regimen updated current review of systems updated today as well. We will proceed with a right-sided biceps tendon injection today with fluoroscopic guidance. Risk were discussed including but not limited to bleeding infection possibility of intravascular injection sequelae spread local anesthetic and numbness side effects steroid medication exposure fluoroscopy and portal scarring pain control. Patient understands wished to proceed patient return to clinic in approximately 2 weeks for follow-up was counseled as return appointment activity level and side effects to be aware of. Medication Injected: Med Injected: Under sterile prep and drape patient's right shoulder was sterilely prepped and draped using C-arm fluoroscopic guidance patient's humerus was identified and insertion site of the biceps tendon identified using 1% lidocaine was topically anesthetized over this region of significant tenderness corresponding to the radiograph fluoroscopy. Using a 22-gauge needle under direct fluoroscopic vision, contact of the humerus at the biceps insertion site was identified using contrast 1.5 cc showed good spread along the biceps tendon insertion sheath without washout or uptake. At this time 3 cc of 0.25% bupivacaine and 80 mg Depo-Medrol was then injected. Needle was removed sterile bandage was applied. Patient tolerated procedure well had no complications. Condition at Discharge: Condition at Discharge: Condition at discharge stable, patient tolerated procedure well and had no complications. BONY LEON MD Jun 09, 2020 09:02
--- NOTE | 2020-06-09 09:03 | PDOC4 ---
PROCEDURE Procedure Patient was consented for right shoulder biceps tendon injection. Risks were discussed including but not limited to bleeding infection possibility of intravascular injection sequelae spread of local anesthetic and numbness side effects steroid medication exposure fluoroscopy and portals regarding pain control. Patient understands wished to proceed. Under sterile prep and drape patient's right shoulder was sterilely prepped and draped using C-arm fluoroscopic guidance patient's humerus was identified and insertion site of the biceps tendon identified using 1% lidocaine was topically anesthetized over this region of significant tenderness corresponding to the radiograph fluoroscopy. Using a 22-gauge needle under direct fluoroscopic vision, contact of the humerus at the biceps insertion site was identified using contrast 1.5 cc showed good spread along the biceps tendon insertion sheath without washout or uptake. At this time 3 cc of 0.25% bupivacaine and 80 mg Depo-Medrol was then injected. Needle was removed sterile bandage was applied. Patient tolerated procedure well had no complications. BONY LEON MD Jun 09, 2020 09:03
== END | disposition home or self-care (01) ==
LOC: PNCL 08:17
PROVIDERS: ATTEND Anesthesiology
DX: M25.511 Pain in right shoulder (principal); M75.21 Bicipital tendinitis, right shoulder; M51.36 Other intervertebral disc degeneration, lumbar region; M47.817 Spondylosis without myelopathy or radiculopathy, lumbosacral region; Z79.82 Long term (current) use of aspirin; Z79.899 Other long term (current) drug therapy; Z88.0 Allergy status to penicillin
CPT/HCPCS: 20610; 77002; J1040; J3490; Q9965; 20605

== ENCOUNTER → 2020-07-24 | Outpatient (CLI) | payer OTHER ==
[~2020-07-24] MED LIST changes: -IOHEXOL 180 MG/ML 10 ML VIAL. ONE; +LIDOCAINE 1% PF 2 ML VIAL. ONE; +LIDOCAINE 2% PF 5 ML VIAL. ONE; +methylPREDNISolone ACETATE 40 MG/ML VIAL. ONE
--- NOTE | 2020-07-24 14:30 | PDOC ---
Progress Note - Pain Clinic Date of Service: DOS: DATE: 07/24/20 TIME: 14:25 Diagnosis: Dx: Lumbar degenerative disc disease with lumbar and lumbosacral spondylosis Right shoulder joint pain with osteoarthritis Biceps tendinitis History or Present Illness: HPI: 54-year-old male returns for follow-up status post lumbar facet joint injections most recently May 05, 2020. Patient had very good results about 75 to 80% improvement after the last injection lasting for several weeks approximately 4 weeks afterwards with the pain still improved but returning fairly significantly weeds discussed with the patient on his visit of June 09, 2020 when he underwent right shoulder joint injection the possibility of repeating radiofrequency ablation for the lumbar spine. Patient shoulder is doing much better 90% improvement in the right shoulder after biceps tendon injection. Patient complains of low back pain at this time in the low back bilaterally right essentially equal to left stabbing burning aching pain sometimes throbbing worse with extension and axial loading lumbar spine better with forward flexion right left lateral rotation exacerbates the pain bilaterally equally right and left. Patient ports no new motor or sensory deficits no new bowel or bladder. Patient rates pain is a 9 on scale 10 is worse over the past week 3 days least 4 on average and is a 5 today. We discussed radiofrequency ablation and patient would like to proceed with this as he is approved through his insurance provider as well. Physical Exam: VS: Blood pressure is 161/82 pulse is 77 respirations 18 temperature 97.6 degrees Fahrenheit height 5 feet 8 inches weight is 270 pounds PE: PHYSICAL EXAMINATION: GENERAL: The patient is awake, alert, oriented, appropriate, very pleasant demeanor HEENT: Shows normocephalic, atraumatic. Extraocular movements are intact and symmetrical. Oral cavity: Mucous membranes moist and pink. Dentition is intact. NECK: Shows anterior throat supple without palpable lymphadenopathy noted. Swallow reflex symmetrical. CHEST: Shows normal on inspection. Breath sounds are clear bilaterally, distant but no rales or rhonchi. HEART: Shows S1, S2 clear. No murmurs auscultated. ABDOMEN: Soft, nontender, nondistended, obese. No palpable organomegaly is noted. No rebound or guarding demonstrated. BACK: Shows spine grossly in the midline. Normal-appearing cervical lordotic curvature. There is slightly increased thoracic kyphosis, some minor flattening of the lumbar lordotic curvature. Lumbar paraspinous muscles show symmetrical on inspection, on palpation shows some moderate tenderness diffusely throughout the upper, middle and lower distribution of the paraspinous muscles, but without specific trigger points, without radiation of pain. The patient has good rotational motion of the lumbar spine, both laterally with moderate pain reported right and left equal past 10 degrees with extension the lumbar spine and axial loading shows significant pain bilaterally as well right equal to left this is decreased with forward flexion at approximate 45 degrees without significant pain reported. No tenderness over the spinous processes, sacrum or sacroiliac regions. EXTREMITIES: Lower extremities show deep tendon reflexes 2+ in the patellar and tendo calcaneus tendons. Motor exam is 5 on a scale of 5 with right dorsiflexion, extension, quadriceps and hamstring flexion and 5/5 on the left. Peripheral pulses are 1+ posterior tibial. No peripheral edema is noted bilaterally. Lower extremities are warm and dry to touch, equal in color and appearance. SKIN: Shows warm and dry, good turgor. No edema. No sores, rashes or bruising throughout. Procedure: Procedure: Options discussed with the patient. Patient's old chart reviews his current medication regimen updated current review of systems updated today as well. We will proceed with bilateral L4-5 and L5-S1 medial branch facet radiofrequency ablation with fluoroscopic guidance. Risks were discussed including but not limited to: Bleeding, infection, possibility of epidural hematoma and subsequent neurological compromise, dural puncture, headaches, spinal cord and/or nerve damage, potential thermal damage to the surrounding tissues as well as permanent motor damage, side effects of steroid medication, and poor results regarding pain control. Patient understands and wished to proceed. Patient return to clinic in approximately 4 weeks for follow-up, was counseled as return appointment, activity level, and side effects to be aware of. Medication Injected: Med Injected: Under sterile prep and drape patient in prone position using C-arm fluoroscopic guidance patient's lumbar spine was visualized in both AP oblique and lateral views using 1% lidocaine to topically anesthetize the areas overlying the L3-4, L4-5 and L5-S1 facet joints at the point of the medial branches. Using a 22- gauge insulated radiofrequency needle with curved tips and stylette, the needles were advanced to contact the region of the facet with the medial branch targets. This was repeated at the L3-4 L4-5 and L5-S1 levels. Stylette was removed and using radiofrequency probe inserted into each needle individually at each level and then motor tested with no motor stimulation of the lower extremity. Patient did have some multifidus musculature contraction in the lumbar spine only but without radiation. At this time 1 cc of 2% lidocaine was then injected in each needle after motor testing but prior to radiofrequency ablation. Needle position was confirmed continuously throughout the radiofrequency ablation with both AP oblique and lateral views at each level. At this time radiofrequency ablation was carried out each level for 60 seconds at 80 C x 2 at each level with the tip of the needle turned 90 degrees after the first 60 seconds and then subsequent 60 seconds of radiofrequency ablation. Once radiofrequency ablation was completed solution containing 0.25% bupivacaine 1 cc and 20 mg Depo-Medrol was injected each level. Needle was then withdrawn. The procedure was repeated for the contralateral side as described as well. Patient had no paresthesias throughout the procedure no radiation of pain into the lower extremities no lower extremity motor response with motor testing bilaterally. Please see radiofrequency flowsheet for levels, temperatures, impedance, etc. Condition at Discharge: Condition at Discharge: Additional discharge stable, patient alert procedure well and had no complic ations. BONY LEON MD Jul 24, 2020 14:30
== END | disposition home or self-care (01) ==
LOC: PNCL 13:00
PROVIDERS: ATTEND Anesthesiology
DX: M51.36 Other intervertebral disc degeneration, lumbar region (principal); M47.817 Spondylosis without myelopathy or radiculopathy, lumbosacral region; M19.011 Primary osteoarthritis, right shoulder; M75.21 Bicipital tendinitis, right shoulder; Z79.82 Long term (current) use of aspirin; Z79.899 Other long term (current) drug therapy; Z98.890 Other specified postprocedural states; Z88.0 Allergy status to penicillin
CPT/HCPCS: 64635; 64636; J1030; J1040; J3490; 77002

== ENCOUNTER → 2020-08-21 | Outpatient (CLI) | payer OTHER ==
[~2020-08-21] MED LIST changes: +IOHEXOL 180 MG/ML 10 ML VIAL. ONE; -LIDOCAINE 1% PF 2 ML VIAL. ONE; -LIDOCAINE 2% PF 5 ML VIAL. ONE
--- NOTE | 2020-08-21 13:44 | PDOC ---
Progress Note - Pain Clinic Date of Service: DOS: DATE: 08/21/20 TIME: 13:39 Diagnosis: Dx: Lumbar and lumbosacral spondylosis with lumbar degenerative disc disease Right shoulder joint pain with osteoarthritis Right biceps tendinitis History or Present Illness: HPI: 55year-old male returns for follow-up status post lumbar radiofrequency ablation bilaterally L4-5 and L5-S1 on July 24, 2020. Patient reports not as much relief as he has had in the past with this procedure where normally he is at least 80 to 90% improvement now only about 50% improvement of the low back pain patient reports he is not doing anything significantly differently with his activity still seems daily activities reports the pain is aching across the low back but not into the lower extremities patient reported aching and dull tight radiating across the low back but not to the legs patient rates as 8 on scale 10 is worse over the past weeks 5 on average 3 at its least is a 5 today. Patient reports still better with sitting or laying down but wakes him from sleep about once a night patient reports no new motor or sensory deficits has been taking ibuprofen is been helping moderately as well. Patient reports no bowel or bladder incontinence. Physical Exam: VS: Blood pressure is 110/71 pulse of 77 respiration 16 temperature 98.2 F weight is 272 pounds PE: PHYSICAL EXAMINATION: GENERAL: The patient is awake, alert, oriented, appropriate, very pleasant demeanor HEENT: Shows normocephalic, atraumatic. Extraocular movements are intact and symmetrical. Oral cavity: Mucous membranes moist and pink. Dentition is intact. NECK: Shows anterior throat supple without palpable lymphadenopathy noted. Swallow reflex symmetrical. CHEST: Shows normal on inspection. Breath sounds are clear. HEART: Shows S1, S2 clear. No murmurs auscultated. ABDOMEN: Soft, nontender, nondistended, obese. No palpable organomegaly is noted. BACK: Shows spine grossly in the midline. Normal-appearing cervical lordotic curvature. There is slightly increased thoracic kyphosis, some minor flattening of the lumbar lordotic curvature. Lumbar paraspinous muscles show symmetrical on inspection, on palpation shows some moderate tenderness diffusely throughout the upper, middle and lower distribution of the paraspinous muscles but without specific trigger points, without radiation of pain. The patient has good rot ational motion of the lumbar spine, both laterally as well as extension and flexion with moderate pain reported with bilateral right and left lateral rotation greater than 10 degrees as well as extension and axial loading of the lumbar spine with significantly more pain not back to baseline but still painful with this maneuver. Forward flexion is performed at 45 degrees without si gnificant pain. EXTREMITIES: Lower extremities show deep tendon reflexes 2 in the patellar and tendo calcaneus tendons. Motor exam is 5 on a scale of 5 with right dorsiflexion, extension, quadriceps and hamstring flexion and 5/5 on the left. Peripheral pulses are 1+ posterior tibial. No peripheral edema is noted bilaterally. Lower extremities are warm and dry. SKIN: Shows warm and dry, good turgor. No edema. No sores, rashes or bruising throughout. Procedure: Procedure: Options were discussed with the patient. Patient's old chart was reviewed his his current medication regimen updated current review of systems updated today as well. We will proceed with bilateral L4-5 and L5-S1 facet joint medial branch injections today with fluoroscopic guidance. Risks were discussed including but not limited to: Bleeding, infection, possibility of epidural hematoma and subsequent neurological compromise, dural puncture, headaches, spinal cord and/or nerve damage, side effects of steroid medication, and poor results regarding pain control. Patient understands and wished to proceed. Patient will return to the clinic in approximate 2 weeks for follow-up, was counseled as to return appointment activity level and side effects to be aware of. Medication Injected: Med Injected: Under sterile prep and drape using C-arm fluoroscopic guidance AP and lateral and oblique views, bilateral L4-5 and L5-S1 facet joint injections were performed, medications injected: 120 mg Depo-Medrol +4 cc 0.25% bupivacaine +2 cc contrast. Condition at discharge stable patient tolerated the procedure well and no complications. Condition at Discharge: Condition at Discharge: Condition at discharge is stable, patient tolerated the procedure well and had no complications. BONY LEON MD Aug 21, 2020 13:43
--- NOTE | 2020-08-21 13:44 | PDOC4 ---
PROCEDURE Procedure Patient is consented for bilateral L4-5 and L5-S1 facet joint medial branch injections with fluoroscopic guidance. Risks were discussed including but not limited to: Bleeding, infection, possibility of epidural hematoma and subsequent neurological compromise, dural puncture, headaches, spinal cord and/or nerve damage, side effects of steroid medication, and poor results regarding pain control. Patient understands and wished to proceed. Under sterile prep and drape using C-arm fluoroscopic guidance AP and lateral and oblique views, bilateral L4-5 and L5-S1 facet joint injections were performed, medications injected: 120 mg Depo-Medrol +4 cc 0.25% bupivacaine +2 cc contrast. Condition at discharge stable patient tolerated the procedure well and no complications. BONY LEON MD Aug 21, 2020 13:44
== END | disposition home or self-care (01) ==
LOC: PNCL 12:49
PROVIDERS: ATTEND Anesthesiology
DX: M47.26 Other spondylosis with radiculopathy, lumbar region (principal); M75.21 Bicipital tendinitis, right shoulder; M19.011 Primary osteoarthritis, right shoulder; Z79.82 Long term (current) use of aspirin; Z79.899 Other long term (current) drug therapy; Z88.0 Allergy status to penicillin
CPT/HCPCS: 64493; 64494; J1030; J1040; J3490; Q9965

== ENCOUNTER → 2020-09-12 | Outpatient (CLI) | payer OTHER ==
[~2020-09-12] MED LIST changes: -BUPIVACAINE MPF 0.25% 10 ML VIAL. ONE
--- NOTE | 2020-09-12 10:16 | PDOC4 ---
PROCEDURE Procedure Patient was consented for lumbar epidural steroid injection. Risks were dis cussed including but not limited to: Bleeding, infection, possibility of epidural hematoma and subsequent neurological compromise, dural puncture, headaches, spinal cord and/or nerve damage, side effects of steroid medication, and poor results regarding pain control. Patient understands and wished to proceed. Procedure is lumbar epidural steroid injection under local anesthetic using sterile prep and drape at the L4-5 level using C-arm fluoroscopic guidance in both AP and lateral views medications injected is 120 mg Depo-Medrol +10mL preservative-free normal saline and 2 mL contrast- condition at discharge is stable patient tolerated procedure well had no complications. BONY LEON MD September 12, 2020 10:16
--- NOTE | 2020-09-12 10:16 | PDOC ---
Progress Note - Pain Clinic Date of Service: DOS: DATE: 09/12/20 TIME: 10:13 Diagnosis: Dx: Lumbar and lumbosacral spondylosis with lumbar degenerative disc disease and lumbar radiculopathy Right shoulder joint pain with osteoarthritis Biceps tendinitis History or Present Illness: HPI: 54-year-old male returns for follow-up status post bilateral lumbar facet joint injections August 21, 2020 with about 75% improvement only for few days patient ports pain returned now and it actually is radiating into his lower extremities which is not done before patient reports in the posterior gluteus posterior lateral thigh lateral anterior thighs and posterior calves to moderate state with walking and standing especially getting up from a seated position and standing for more than 5 to 10 minutes. Patient reports is a 10 on scale 10 is worse over the past week 7 on average 5 its least is a 7 today patient ports t ingling stabbing aching sharp tight and shooting in the lower extremities as well as across the low back. Patient reports his low back is still having some pain as well doing somewhat better with rotation of motion in extension but the pain in the lower extremities now is new and is becoming much more noticeable. Patient reports no new bowel or bladder incontinence no new motor or sensory deficits. Physical Exam: VS: Blood pressure is 116/74 pulse 75 respirations 18 temperature 98.5 F height is 5 foot 8 inches weight is 270 pounds PE: PHYSICAL EXAMINATION: GENERAL: The patient is awake, alert, oriented, appropriate, very pleasant demeanor HEENT: Shows normocephalic, atraumatic. Extraocular movements are intact and symmetrical. Oral cavity: Mucous membranes moist and pink. NECK: Shows anterior throat supple without palpable lymphadenopathy noted. Swallow reflex symmetrical. CHEST: Shows normal on inspection. Breath sounds are clear bilaterally. HEART: Shows S1, S2 clear. No murmurs auscultated. ABDOMEN: Soft, nontender, nondistended, obese. No palpable organomegaly is noted. BACK: Shows spine grossly in the midline. Normal-appearing cervical lordotic curvature. There is slightly increased thoracic kyphosis, some minor flattening of the lumbar lordotic curvature. Lumbar paraspinous muscles show symmetrical on inspection, on palpation shows some moderate tenderness diffusely throughout the upper, middle and lower distribution of the paraspinous muscles without specific trigger points, without radiation of pain. The patient has good rotational motion of the lumbar spine, both laterally with moderate pain reported bilaterally greater than 10 degrees as well as some more significant pain with extension at 10 degrees decreased pain with forward flexion at 45 degrees. No tenderness over the spinous processes, sacrum or sacroiliac regions. EXTREMITIES: Lower extremities show deep tendon reflexes 2+ in the patellar and tendo calcaneus tendons. Motor exam is 5 on a scale of 5 with right dorsiflexion, extension, quadriceps and hamstring flexion and 5/5 on the left. Peripheral pulses are 1+ posterior tibial. No peripheral edema is noted bilaterally. Lower extremities are warm and dry to touch, equal in color and appearance. SKIN: Shows warm and dry, good turgor. No edema. No sores, rashes or bruising throughout. Procedure: Procedure: Options discussed with patient. Patient chart was reviews his current medication regimen updated current review of systems updated today as well. We will proceed with a lumbar epidural steroid injection today with fluoroscopic guidance. Risks were discussed including but not limited to: Bleeding, infection, possibility of epidural hematoma and subsequent neurological compromise, dural puncture, headaches, spinal cord and/or nerve damage, side effects of steroid medication, and poor results regarding pain control. Patient understands and wished to proceed. Patient return to clinic in approximate 2 weeks for follow-up, was counseled as to return appointment activity level and side effects to be aware of. Medication Injected: Med Injected: Procedure is lumbar epidural steroid injection under local anesthetic using sterile prep and drape at the L4-5 level using C-arm fluoroscopic guidance in both AP and lateral views medications injected is 120 mg Depo-Medrol +10mL preservative-free normal saline and 2 mL contrast- condition at discharge is stable patient tolerated procedure well had no complications. Condition at Discharge: Condition at Discharge: Condition at discharge stable, patient tolerated procedure well and had no complications. BONY LEON MD September 12, 2020 10:16
== END | disposition home or self-care (01) ==
LOC: PNCL 08:41
PROVIDERS: ATTEND Anesthesiology
DX: M51.16 Intervertebral disc disorders with radiculopathy, lumbar region (principal); M47.27 Other spondylosis with radiculopathy, lumbosacral region; M19.011 Primary osteoarthritis, right shoulder; M75.21 Bicipital tendinitis, right shoulder; Z79.82 Long term (current) use of aspirin; Z79.899 Other long term (current) drug therapy; Z88.0 Allergy status to penicillin
CPT/HCPCS: 62323; J1030; J1040; Q9965

== ENCOUNTER → 2020-10-23 | Outpatient (CLI) | payer OTHER ==
--- NOTE | 2020-10-23 08:31 | PDOC ---
Progress Note - Pain Clinic Date of Service: DOS: DATE: 10/23/20 TIME: : Diagnosis: Dx: Lumbar radiculopathy with lumbar degenerative disc disease lumbar spondylosis Right shoulder joint pain with osteoarthritis Biceps tendinitis History or Present Illness: HPI: 54-year-old male returns for follow-up status post lumbar epidural steroid injection x1. Patient reports he did very well after the injection with about 75% improvement but he is having some numbness sensation in his legs which is new in the bilateral lower extremities I talked him on the phone last week and we discussed potential reinjection today new like to proceed patient reports s till significant pain in the low back rating to bilateral lower extremities left equal to right right posterior gluteus posterior lateral thigh lateral anterior thigh anteromedial thigh medial calves and posterior calves worse with walking standing with some numbness now as well. Patient reports pain is a 10 on scale 10 is worse over the past week 8 on average 7 at its least is an 8 today. Patient grabs aching sharp dull tight shooting burning cramping stabbing can be radiating constant again with some numbness which was somewhat scary to him over the past week or so as this had not occurred before. Patient reports no lasting numbness and this cleared up after about 1 minute but the pain is still persistent in the low back and lower extremities and radicular fashion. Patient reports still some pain in the right shoulder but is doing some stretching and strengthening exercises which is helpful with this as well. Physical Exam: VS: Blood pressure is 118/80 pulse 93 respirations 18 temperature 90.1 F height is 5 feet 8 inches weight 272 pounds PE: PHYSICAL EXAMINATION: GENERAL: The patient is awake, alert, oriented, appropriate, very pleasant demeanor HEENT: Shows normocephalic, atraumatic. Extraocular movements are intact and symmetrical. NECK: Shows anterior throat supple without palpable lymphadenopathy noted. Swallow reflex symmetrical. CHEST: Shows normal on inspection. Breath sounds are clear bilaterally, no rales or rhonchi. HEART: Shows S1, S2 clear. No murmurs auscultated. ABDOMEN: Soft, nontender, nondistended, obese. BACK: Shows spine grossly in the midline. Normal-appearing cervical lordotic curvature. There is slightly increased thoracic kyphosis, some minor flattening of the lumbar lordotic curvature. Lumbar paraspinous muscles show symmetrical on inspection, on palpation shows some moderate tenderness diffusely throughout the upper, middle and lower distribution of the paraspinous muscles without specific trigger points, without radiation of pain. The patient has good rotational motion of the lumbar spine, both laterally as well as extension and flexion without significant difficulty. No tenderness over the spinous processes, sacrum or sacroiliac regions. EXTREMITIES: Lower extremities show deep tendon reflexes 2+ in the patellar and tendo calcaneus tendons. Motor exam is 5 on a scale of 5 with right do rsiflexion, extension, quadriceps and hamstring flexion and 5/5 on the left. Peripheral pulses are 1+ posterior tibial. No peripheral edema is noted bilaterally. Lower extremities are warm and dry. SKIN: Shows warm and dry, good turgor. No edema. No sores, rashes or bruising throughout. Procedure: Procedure: Options were discussed with the patient. Patient's old chart was reviewed his current medication regimen updated current review of systems updated today as well. We will proceed with a second in a series lumbar epidural steroid injection stable fluoroscopic guidance. Risks were discussed including but not limited to: Bleeding, infection, possibility of epidural hematoma and subsequent neurological compromise, dural puncture, headaches, spinal cord and/or nerve damage, side effects of steroid medication, and poor results regarding pain cont rol. Patient understands and wished to proceed. Patient will return to the clinic in approximate 2 weeks for follow-up, was counseled as return appointment activity level and side effects to be aware of. Medication Injected: Med Injected: Procedure is lumbar epidural steroid injection under local anesthetic using sterile prep and drape at the L4-5 level using C-arm fluoroscopic guidance in both AP and lateral views medications injected is 120 mg Depo-Medrol +10mL preservative-free normal saline and 2 mL contrast- condition at discharge is stable patient tolerated procedure well had no complications. Condition at Discharge: Condition at Discharge: Condition at discharge stable, patient already procedure well and had no complications. Patient will continue with stretching 3 exercises as well as oral analgesics also stretching and strength exercises and physical therapy exercises for his right shoulder as previously. BONY LEON MD Oct 23, 2020 08:31
--- NOTE | 2020-10-23 08:32 | PDOC4 ---
Procedure Note: Procedure Note: Patient was consented for lumbar epidural steroid injection. Risks were discussed including but not limited to: Bleeding, infection, possibility of epidural hematoma and subsequent neurological compromise, dural puncture, headaches, spinal cord and/or nerve damage, side effects of steroid medication, and poor results regarding pain control. Patient understands and wished to proceed. Procedure is lumbar epidural steroid injection under local anesthetic using sterile prep and drape at the L4 5 level using C-arm fluoroscopic guidance in both AP and lateral views medications injected is 120 mg Depo-Medrol +10mL preservative-free normal saline and 2 mL contrast- condition at discharge is stable patient tolerated procedure well had no complications. BONY LEON MD Oct 23, 2020 08:32
== END | disposition home or self-care (01) ==
LOC: PNCL 07:30
PROVIDERS: ATTEND Anesthesiology
DX: M51.16 Intervertebral disc disorders with radiculopathy, lumbar region (principal); M47.26 Other spondylosis with radiculopathy, lumbar region; M75.21 Bicipital tendinitis, right shoulder; M19.011 Primary osteoarthritis, right shoulder; Z79.82 Long term (current) use of aspirin; Z79.899 Other long term (current) drug therapy; Z88.0 Allergy status to penicillin
CPT/HCPCS: 62323; J1030; J1040; Q9965; 62322

== ENCOUNTER → 2020-11-03 | Outpatient (CLI) | payer OTHER ==
[~2020-11-03] MED LIST changes: -IOHEXOL 180 MG/ML 10 ML VIAL. ONE; -methylPREDNISolone ACETATE 40 MG/ML VIAL. ONE; -methylPREDNISolone ACETATE 80 MG/ML VIAL. ONE
--- NOTE | 2020-11-03 17:01 | KCIC ---
MRI of the lumbar spine without contrast 11/03/2020 CLINICAL HISTORY: Low back pain. Chronic lumbar radiculopathy. TECHNIQUE: Unenhanced T1-weighted and T2-weighted sagittal and axial and inversion recovery sagittal images of the lumbar spine were obtained. FINDINGS: Minimal S-shaped curvature of the thoracolumbar spine is seen. Degenerative signal changes are seen involving all of the disks of the lumbar spine. Degenerative signal changes are seen within the marrow surrounding these discs. The conus medullaris is normal morphology, position, and signal c haracteristics. At the L1-2, L2-3 and L3-4 disc spaces there are minimal to mild generalized disc bulges. Degenerativ e changes are seen involving the facet joints bilaterally. There is mild ligamentum flavum hypertroph y bilaterally. These findings when combined do not result in significant central spinal canal or neur al foraminal stenosis. At the L4-5 disc space there is a mild to moderate generalized disc bulge. Degenerative changes are s een involving the facet joints bilaterally. There are moderate facet joint effusions bilaterally. A 6 mm synovial cyst is seen projecting medially and anteriorly from the left facet joint. Prominent fac et hypertrophy projects anteriorly and medially from the facet joints, right greater than left. This measures 1 to 1.5 cm in greatest diameter. These findings when combined result in severe right greate r than left central spinal canal stenosis. No neural foraminal stenosis is seen. At the L5-S1 disc space there is a mild generalized disc bulge. Superimposed on this disc bulge is a focal central disc protrusion. This measures 3 mm in AP diameter. Degenerative changes are seen invol ving the facet joints bilaterally. There is mild ligamentum flavum hypertrophy bilaterally. These fin dings when combined do not result in significant central spinal canal or neural foraminal stenosis. IMPRESSION: The changes of degenerative disc disease are seen throughout the lumbar spine. These find ings result in severe right greater than left central spinal canal stenosis at L4-5. No neural forami nal stenosis is seen. Electronically signed by: Marty Zimmerman MD (11/03/2020 4:59 PM) [id number]
== END | disposition home or self-care (01) ==
LOC: KCIC MRI 14:16
PROVIDERS: ATTEND Anesthesiology
DX: M51.16 Intervertebral disc disorders with radiculopathy, lumbar region (principal); M48.061 Spinal stenosis, lumbar region without neurogenic claudication; Z79.82 Long term (current) use of aspirin; Z79.899 Other long term (current) drug therapy; Z88.0 Allergy status to penicillin
CPT/HCPCS: 72148

== ENCOUNTER → 2021-03-16 | Outpatient (CLI) | payer OTHER ==
[~2021-03-16] MED LIST changes: +CYCL10TA19 PO; -CYCL10TA2 PO; +GADOTERATE 7.5 MMOL/15ML VIAL. IVP ONE
--- NOTE | 2021-03-16 09:52 | KCIC ---
EXAM: Lumbar spine MRI without and with contrast. HISTORY: Arthrodesis. Pain. TECHNIQUE: Multiplanar, multisequence magnetic resonance imaging of the lumbar spine was performed wi thout and with contrast. COMPARISON: 11/03/2020 FINDINGS: There is instrumented posterior spinal fusion and laminectomy decompression at L4-L5. There is 2 mm grade 1 anterolisthesis of L4 on L5. There is degenerative endplate remodeling at multiple l evels. There are multiple endplate Schmorl's nodes. There is no fracture or suspicious osseous lesion . The conus terminates at L1-L2. At L1-L2, there is no stenosis. At L2-L3, there is a suspected shallow left extraforaminal to lateral disc protrusion superimposed on a disc bulge and endplate remodeling. There is prominent dorsal epidural fat. There is minimal left foraminal stenosis. There is minimal central canal stenosis. At L3-L4, there is prominent dorsal epidural fat. There is minimal central canal stenosis. At L4-L5, there is instrumented posterior spinal fusion and laminectomy decompression. There is no st enosis. At L5-S1, there is a posterior central disc protrusion. There is prominent epidural fat which moderat neal effaces the thecal sac. There is minimal bilateral foraminal stenosis. IMPRESSION: 1. Interval instrumented posterior spinal fusion and laminectomy decompression at L4-L5. The previous ly demonstrated central canal stenosis at this level is no longer seen. 2. Degenerative change involving the lumbar spine, described in detail above. This results in minimal left foraminal and central canal stenosis at L2-L3, minimal central canal stenosis at L3-L4, and min imal bilateral foraminal stenosis at L5-S1. There is also prominent epidural fat resulting in moderat e effacement of the thecal sac at the lumbosacral junction. These findings are not significantly hutson ged compared to the prior study. Electronically signed by: Sona Lui MD (03/16/2021 9:49 AM) [id number]
== END ==
LOC: KCIC MRI 07:52
PROVIDERS: ATTEND Family Medicine
DX: M51.27 Other intervertebral disc displacement, lumbosacral region (principal); M47.816 Spondylosis without myelopathy or radiculopathy, lumbar region; M48.07 Spinal stenosis, lumbosacral region; Z98.1 Arthrodesis status
CPT/HCPCS: 72158; A9575

== ENCOUNTER → 2021-08-08 | Outpatient (CLI) | payer OTHER ==
[~2021-08-08] MED LIST changes: -GADOTERATE 7.5 MMOL/15ML VIAL. IVP ONE; +IOHEXOL 180 MG/ML 10 ML VIAL. ONE; +methylPREDNISolone ACETATE 40 MG/ML VIAL. ONE; +methylPREDNISolone ACETATE 80 MG/ML VIAL. ONE
--- NOTE | 2021-08-08 09:24 | PDOC ---
Progress Note - Pain Clinic Date of Service: DOS: DATE: 08/08/21 TIME: 09:19 Diagnosis: Dx: Lumbar radiculopathy with lumbar degenerative disease and lumbar spinal stenosis Right shoulder joint pain with osteoarthritis Biceps tendinitis. History or Present Illness: HPI: 55-year-old male presents with the complaints of low back and bilateral lower extremity pain. Patient status post lumbar laminectomy with discectomy and posterior fusion at the L4-5 level which was performed in January 2021. Patient reports about 3 months he did well but the pain returned fairly quickly in the posterior low back into the posterior gluteus posterior thighs posterior calves with some numbness in the feet bilaterally patient reports that he had new MRI scan which we reviewed with him today showing at L5-S1 posterior central disc protrusion with prominent epidural fat which moderately effaces the thecal sac and minimal bilateral foraminal stenoses with L4-5 instrumented posterior spinal fusion and laminectomy decompression. Patient reports the pain is worse with standing walking he can walk for about 5 minutes and he must sit down to decrease the pain patient reports is much better with sitting or laying down wakes him sleep occasionally but not every night patient reports the pain is a 10+ on a scale 10 is worse over the past week 8 on average 7 its least is an 8 today. Again much worse with walking standing equally right and left distributed pain and radiating into the lower extremities patient reports aching sharp in the back tight and back shooting in the legs tingling in the legs and tingling in the feet stabbing and radiating can be constant severe and unbearable with weightbearing or standing specially more than 5 minutes or so patient reports no motor loss but significant fatigability of the lower extremities bilaterally with ambulation or standing. Patient reports no bowel or bladder incontinence. Physical Exam: VS: Blood pressure is 126/83 pulse 85 respirations 16 temperature 91 F weight is 281 pounds. PE: PHYSICAL EXAMINATION: GENERAL: The patient is awake, alert, oriented, appropriate, very pleasant in demeanor HEENT: Shows normocephalic, atraumatic. Extraocular movements are intact and symmetrical. Oral cavity: Mucous membranes moist and pink. Dentition is intact. NECK: Shows anterior throat supple without palpable lymphadenopathy noted. Swallow reflex symmetrical. CHEST: Shows normal on inspection. Breath sounds are clear bilaterally, no rales rhonchi wheezes auscultated. HEART: Shows S1, S2 clear. No murmurs auscultated. ABDOMEN: Soft, nontender, nondistended. No palpable organomegaly is noted. BACK: Shows spine grossly in the midline. Normal-appearing cervical lordotic curvature. There is slightly increased thoracic kyphosis, some flattening of the lumbar lordotic curvature with well-healed surgical scarring noted. Lumbar paraspinous muscles show symmetrical on inspection, on palpation shows some moderate tenderness diffusely throughout the upper, middle and lower distribution of the paraspinous muscles, but without specific trigger points, without radiation of pain. The patient has good rotational motion of the lumbar spine, both laterally as well as extension and flexion without significant difficulty. No tenderness over the spinous processes, sacrum or sacroiliac regions. EXTREMITIES: Lower extremities show deep tendon reflexes 2+ in the patellar and tendo calcaneus tendons. Motor exam is 4 on a scale of 5 with right dorsiflexion, extension, quadriceps and hamstring flexion and 4/5 on the left. Peripheral pulses are 1 posterior tibial. No peripheral edema is noted bilaterally. Lower extremities are warm and dry to touch, equal in color and appearance. Straight leg raise noted to be positive bilaterally at about 40 degrees decreased with knee flexion bilaterally. Dwight's and Gaenslen's maneuvers are negative bilaterally. SKIN: Shows warm and dry, good turgor. No edema. No sores, rashes or bruising throughout. Procedure: Procedure: Options were discussed with patient. Patient's old chart was reviewed his current medication regimen updated current review of systems updated today as well. We will proceed with a lumbar epidural steroid injection today with fluoroscopic guidance. Risks were discussed including but not limited to: Bleeding, infection, possibility of epidural hematoma and subsequent regina rological compromise, dural puncture, headaches, spinal cord and/or nerve damage, side effects of steroid medication, and poor results regarding pain control. Patient understands and wished to proceed. Patient will return to the clinic in approximately 2 weeks for follow-up, was counseled as to return appointment, activity level, and side effects to be aware of. Medication Injected: Med Injected: Procedure is lumbar epidural steroid injection under local anesthetic using s terile prep and drape at the L5-S1 level using C-arm fluoroscopic guidance in both AP and lateral views medications injected is 120 mg methylprednisolone +10mL preservative-free normal saline and 2 mL contrast- condition at discharge is stable patient tolerated procedure well had no complications. Condition at Discharge: Condition at Discharge: Condition at discharge stable, patient Anshu the procedure well and had no complications. BONY LEON MD Aug 08, 2021 09:24
--- NOTE | 2021-08-08 09:25 | PDOC4 ---
Procedure Note: ICD 10 Code: ICD 10 Code: MFive 4.17 M51.8 7 M4 8.07 Procedure Note: Patient was consented for lumbar epidural steroid injection with fluoroscopic guidance. Risks were discussed including but not limited to: Bleeding, infection, possibility of epidural hematoma and subsequent neurological compromise, dural puncture, headaches, spinal cord and/or nerve damage, side effects of steroid medication, and poor results regarding pain control. Patient understands and wished to proceed. Procedure is lumbar epidural steroid injection under local anesthetic using sterile prep and drape at the L5-S1 level using C-arm fluoroscopic guidance in both AP and lateral views medications injected is 120 mg methylprednisolone +10mL preservative-free normal saline and 2 mL contrast- condition at discharge is stable patient tolerated procedure well had no complications. BONY LEON MD Aug 08, 2021 09:25
== END | disposition home or self-care (01) ==
LOC: PNCL 08:33
PROVIDERS: ATTEND Anesthesiology
DX: M51.16 Intervertebral disc disorders with radiculopathy, lumbar region (principal); M48.061 Spinal stenosis, lumbar region without neurogenic claudication; M19.011 Primary osteoarthritis, right shoulder; M75.21 Bicipital tendinitis, right shoulder; Z79.82 Long term (current) use of aspirin; Z79.899 Other long term (current) drug therapy; Z88.0 Allergy status to penicillin
CPT/HCPCS: 62323; J1030; J1040; Q9965

== ENCOUNTER → 2021-08-22 | Outpatient (CLI) | payer OTHER ==
[~2021-08-22] MED LIST changes: +DEXAMETHASONE PRES.FREE 10 MG/ML VIAL. ONE; -methylPREDNISolone ACETATE 40 MG/ML VIAL. ONE; -methylPREDNISolone ACETATE 80 MG/ML VIAL. ONE
--- NOTE | 2021-08-22 08:38 | PDOC ---
Progress Note - Pain Clinic Date of Service: DOS: DATE: 08/22/21 TIME: 08:35 Diagnosis: Dx: Lumbar radiculopathy with lumbar degenerative disease lumbar spinal stenosis lumbar postlaminectomy syndrome Right shoulder joint pain with osteoarthritis History or Present Illness: HPI: 55-year-old male returns for follow-up status post lumbar epidural steroid injection last seen August 08, 2021 patient is doing very well reports about 80% improvement until he fell at work about a week ago with pain returning low back and bilateral lower extremities patient reports he has numbness and tingling in both feet rigidness was doing much better patient reports now the pain is in the back and radiating to the bilateral lower extremities and the numbness and tingling in the feet is becoming much more noticeable patient reports its present with standing for more than 20 to 30minutes walking standing changing positions also present at times at night and wakes him from sleep about once every 6 hours patient reports the pain in the back is increased and radiating bilaterally to lower extremities posterior gluteus posterior thigh posterior calves not constantly but intermittently with activity patient reports pain is a 10 on scale 10 is worse over the past week 8 on average 7 its least and is an 8 today. Patient reports he is doing much better with activity distance walking doing household activities work activities travel with greater ease and comfort as well prior to the fall but now the pain is returned and again much more noticeable in the feet with numbness and tingling since the recent fall on the stairs. Patient reports no bowel or bladder incontinence no loss of motor function but significant fatigability of both lower extremities. Physical Exam: VS: Blood pressure is 136/88 pulse 81 respirations 16 temperature 98.1 F weight is 274 pounds PE: PHYSICAL EXAMINATION: GENERAL: The patient is awake, alert, oriented, appropriate, very pleasant in demeanor HEENT: Shows normocephalic, atraumatic. Extraocular movements are intact and symmetrical. Oral cavity: Mucous membranes moist and pink. Dentition is intact. NECK: Shows anterior throat supple without palpable lymphadenopathy noted. Swallow reflex symmetrical. CHEST: Shows normal on inspection. Breath sounds are clear bilaterally, no rales rhonchi or wheezes auscultated. HEART: Shows S1, S2 clear. No murmurs auscultated. ABDOMEN: Soft, nontender, nondistended. No palpable organomegaly is noted. No rebound or guarding demonstrated. BACK: Shows spine grossly in the midline. Normal-appearing cervical lordotic curvature. There is slightly increased thoracic kyphosis, some flattening of the lumbar lordotic curvature with well-healed surgical scarring again noted lumbar. Paraspinous muscles show symmetrical on inspection, on palpation shows some moderate tenderness diffusely throughout the upper, middle and lower distribution of the paraspinous muscles, but without specific trigger points, without radiation of pain. The patient has good rotational motion of the lumbar spine, both laterally as well as extension and flexion without significant difficulty. EXTREMITIES: Lower extremities show deep tendon reflexes 2+ in the patellar and tendo calcaneus tendons. Motor exam is 4 on a scale of 5 with right dorsiflexion, extension, quadriceps and hamstring flexion and 4/5 on the left. Peripheral pulses are 1+ posterior tibial. No peripheral edema is noted bilaterally. Lower extremities are warm and dry to touch, equal in color and appearance. SKIN: Shows warm and dry, good turgor. No edema. No sores, rashes or bruising throughout. Procedure: Procedure: Options discussed with the patient. Patient's old chart was reviewed his current medication regimen updated current review of systems updated today as well. We will proceed with a lumbar epidural steroid injection today with fluoroscopic guidance. Risks were discussed including but not limited to: Bleeding, infection, possibility of epidural hematoma and subsequent neurological compromise, dural puncture, headaches, spinal cord and/or nerve damage, side effects of steroid medication, and poor results regarding pain control. Patient understands and wished to proceed. Patient return to clinic in approximate 2 weeks for follow-up, was counseled as return appointment, activity level, and side effects to be aware of. Medication Injected: Med Injected: Procedure is lumbar epidural steroid injection under local anesthetic using sterile prep and drape at the L5-S1 level using C-arm fluoroscopic guidance in both AP and lateral views medications injected is 20 mg dexamethasone +10mL preservative-free normal saline and 2 mL contrast- condition at discharge is stable patient tolerated procedure well had no complications. Condition at Discharge: Condition at Discharge: Condition at discharge stable, paced tolerated the procedure well and had no complications. BONY LEON MD Aug 22, 2021 08:38
--- NOTE | 2021-08-22 08:39 | PDOC4 ---
Procedure Note: ICD 10 Code: ICD 10 Code: M54.17 M51.87 M48.07 M96.1 Procedure Note: Patient was consented for lumbar epidural steroid injection with fluoroscopic guidance. Risks were discussed including but not limited to: Bleeding, infection, possibility of epidural hematoma and subsequent neurological compromise, dural puncture, headaches, spinal cord and/or nerve damage, side effects of steroid medication, and poor results regarding pain control. Patient understands and wished to proceed. Procedure is lumbar epidural steroid injection under local anesthetic using sterile prep and drape at the L5-S1 level using C-arm fluoroscopic guidance in both AP and lateral views medications injected is 20 mg dexamethasone +10mL preservative-free normal saline and 2 mL contrast- condition at discharge is stable patient tolerated procedure well had no complications. BONY LEON MD Aug 22, 2021 08:39
== END | disposition home or self-care (01) ==
LOC: PNCL 07:53
PROVIDERS: ATTEND Anesthesiology
DX: M51.16 Intervertebral disc disorders with radiculopathy, lumbar region (principal); M48.061 Spinal stenosis, lumbar region without neurogenic claudication; M96.1 Postlaminectomy syndrome, not elsewhere classified; M19.011 Primary osteoarthritis, right shoulder; Z79.82 Long term (current) use of aspirin; Z79.899 Other long term (current) drug therapy; Z88.0 Allergy status to penicillin
CPT/HCPCS: 62323; J1100; Q9965

== ENCOUNTER → 2021-09-05 | Outpatient (CLI) | payer OTHER ==
--- NOTE | 2021-09-05 09:38 | PDOC ---
Progress Note - Pain Clinic Date of Service: DOS: DATE: 09/05/21 TIME: 09:35 Diagnosis: Dx: Lumbar maculopathy with lumbar degenerative disease lumbar spinal stenosis lumbar postlaminectomy syndrome Lumbar and lumbosacral spondylosis Right shoulder joint pain with osteoarthritis Biceps tendinitis History or Present Illness: HPI: 55-year-old male returns for follow-up status post lumbar epidural steroid injection last seen August 22, 2021 patient did well but only for a few days after the injection patient reports the pain returned fairly quickly in the low back and the bilateral lower extremities somewhat worse on the right than the left and present bilaterally patient reports is in the low back right and left now essentially equal aching sharp tight and shooting tingling cramping in the back stabbing in the legs radiating the legs can be constant severe with walking standing changing positions patient reports that he immediately went back to work after his last injection and feels that he overdid it that day with bending and stooping although it was better for a few days the pain returned fairly quickly which previously had not patient reports is not sleeping well at night is waking her from sleep about every 2 hours patient reports he is taking hydrocodone which is not decreasing the pain significantly as well. Patient reports no bowel or bladder incontinence pain worse with walking standing changing positions as well as now awakening from sleep fairly frequently. Physical Exam: VS: Blood pressure is 105/70 pulse 76 respirations 18 temperature 98.1 F weight is 274 pounds. PE: PHYSICAL EXAMINATION: GENERAL: The patient is awake, alert, oriented, appropriate, very pleasant and demeanor HEENT: Shows normocephalic, atraumatic. Extraocular movements are intact and symmetrical. Patient wearing eyeglasses. Oral cavity: Mucous membranes moist and pink. Dentition is intact. NECK: Shows anterior throat supple without palpable lymphadenopathy noted. Swallow reflex symmetrical. CHEST: Shows normal on inspection. Breath sounds are clear bilaterally, distant but no rales or rhonchi auscultated. HEART: Shows S1, S2 clear. No murmurs auscultated. ABDOMEN: Soft, nontender, nondistended. No palpable organomegaly is noted. BACK: Shows spine grossly in the midline. Normal-appearing cervical lordotic curvature. There is slightly increased thoracic kyphosis, some moderate flattening of the lumbar lordotic curvature with well-healed surgical scarring noted. Lumbar paraspinous muscles show symmetrical on inspection, on palpation shows some moderate tenderness diffusely throughout the upper, middle and lower distribution of the paraspinous muscles, but without specific trigger points, without radiation of pain. The patient has good rotational motion of the lumbar spine, both laterally as well as extension and flexion without significant difficulty. . EXTREMITIES: Lower extremities show deep tendon reflexes 2+ in the patellar and tendo calcaneus tendons. Motor exam is 4 on a scale of 5 with right dorsiflexion, extension, quadriceps and hamstring flexion and 4/5 on the left. Peripheral pulses are 1+ posterior tibial. No peripheral edema is noted bilaterally. Lower extremities are warm and dry to touch, equal in color and appearance. SKIN: Shows warm and dry, good turgor. No edema. No sores, rashes or bruising throughout. Procedure: Procedure: Options discussed with patient. Patient's chart was reviewed his current medication regimen updated current review of systems updated today as well. We will proceed with a lumbar epidural steroid injection today with fluoroscopic guidance. Risks were discussed including but not limited to: Bleeding, infection, possibility of epidural hematoma and subsequent neurological compromise, dural puncture, headaches, spinal cord and/or nerve damage, side effects of steroid medication, and poor results regarding pain control. Patient understands and wished to proceed. Patient will return to the clinic in approximately 2 weeks for follow-up, was counseled as to return appointment, activity level, and side effects to be aware of. Medication Injected: Med Injected: Procedure is lumbar epidural steroid injection under local anesthetic using sterile prep and drape at the L5-S1 level using C-arm fluoroscopic guidance in both AP and lateral views medications injected is 20 mg dexamethasone +10mL preservative-free normal saline and 2 mL contrast- condition at discharge is stable patient tolerated procedure well had no complications. Condition at Discharge: Condition at Discharge: Condition at discharge stable, patient tolerated the procedure well and had no complications. BONY LEON MD September 05, 2021 09:38
--- NOTE | 2021-09-05 09:39 | PDOC4 ---
Procedure Note: ICD 10 Code: ICD 10 Code: M54.17 M51.87 M48.07 M96.1 Procedure Note: Patient was consented for lumbar epidural steroid injection with fluoroscopic guidance. Risks were discussed including but not limited to: Bleeding, infection, possibility of epidural hematoma and subsequent neurological compromise, dural puncture, headaches, spinal cord and/or nerve damage, side effects of steroid medication, and poor results regarding pain control. Patient understands and wished to proceed. Procedure is lumbar epidural steroid injection under local anesthetic using sterile prep and drape at the L5-S1 level using C-arm fluoroscopic guidance in both AP and lateral views medications injected is 20 mg dexamethasone +10mL preservative-free normal saline and 2 mL contrast- condition at discharge is stable patient tolerated procedure well had no complications. BONY LEON MD September 05, 2021 09:39
== END | disposition home or self-care (01) ==
LOC: PNCL 08:26
PROVIDERS: ATTEND Anesthesiology
DX: M51.16 Intervertebral disc disorders with radiculopathy, lumbar region (principal); M48.061 Spinal stenosis, lumbar region without neurogenic claudication; M96.1 Postlaminectomy syndrome, not elsewhere classified; M47.27 Other spondylosis with radiculopathy, lumbosacral region; M47.26 Other spondylosis with radiculopathy, lumbar region; M19.011 Primary osteoarthritis, right shoulder; M75.21 Bicipital tendinitis, right shoulder; Z79.82 Long term (current) use of aspirin; Z79.899 Other long term (current) drug therapy; Z88.0 Allergy status to penicillin
CPT/HCPCS: 62323; J1100; Q9965

== ENCOUNTER → 2021-09-19 | Outpatient (CLI) | payer OTHER ==
[~2021-09-19] MED LIST changes: +BUPIVACAINE MPF 0.25% 10 ML VIAL. ONE
--- NOTE | 2021-09-19 08:56 | PDOC4 ---
Procedure Note: ICD 10 Code: ICD 10 Code: M4 7.816 M4 7.817 Procedure Note: Patient is consented for bilateral facet medial branch blocks at the L4-5 and L5-S1 levels with fluoroscopic guidance. Risks were discussed including but not limited to: Bleeding, infection, possibility of epidural hematoma and subsequent neurological compromise, dural puncture, headaches, spinal cord and/or nerve damage, side effects of steroid medication, and poor results regarding pain control. Patient understands and wished to proceed. Under sterile prep and drape using C-arm fluoroscopic guidance AP and lateral and oblique views, bilateral L4-5 and L5-S1 facet joint MB's injections were performed, using 22-gauge quinke needles with stylette's x4,, medications injected: 20 mg dexamethasone +4 cc 0.25% bupivacaine +2 cc contrast. Condition at discharge is stable, patient tolerated the procedure well and no complications. BONY LEON MD September 19, 2021 08:56
--- NOTE | 2021-09-19 08:56 | PDOC ---
Progress Note - Pain Clinic Date of Service: DOS: DATE: 09/19/21 TIME: 08:52 Diagnosis: Dx: Lumbar degenerative disease lumbar spinal stenosis postlaminectomy syndrome and lumbar and lumbosacral spondylosis History or Present Illness: HPI: 55-year-old male returns for follow-up status post lumbar epidural steroid injection with significant improvement in the bilateral lower extremity pain but still significant pain in the low back itself now no longer radiating to the lower extremities patient reports across the low back right equal to left worse with standing walking changing positions even sitting for prolonged periods greater than 20 to 30 minutes patient reports it is not radiating to the lower extremities currently rates across the left and right low back most noticeable with standing reaching up over his head with his arms and standing and walking or climbing stairs. Patient reports a 10 on scale 10 is worse over the past week 8 on average 6 at its least and 8 today patient reports initially to do much better distance walking doing household activities work activities greater ease but is pain in the back has not subsided significantly. Patient had right shoulder replacement about 1 week ago as well. Patient reports no bowel or bladder incontinence no loss of motor function. Physical Exam: VS: Blood pressure is 119/70 pulse 84 respirations 18 temperature 98.2 F height 5 foot 8 inches weight 279 pounds. PE: PHYSICAL EXAMINATION: GENERAL: The patient is awake, alert, oriented, appropriate, very pleasant in demeanor HEENT: Shows normocephalic, atraumatic. Extraocular movements are intact and symmetrical. Patient wearing eyeglasses. Oral cavity: Mucous membranes moist and pink. Dentition is intact. NECK: Shows anterior throat supple without palpable lymphadenopathy noted. Swallow reflex symmetrical. CHEST: Shows normal on inspection. Breath sounds are clear bilaterally. HEART: Shows S1, S2 clear. No murmurs auscultated. ABDOMEN: Soft, nontender, nondistended. No palpable organomegaly is noted. BACK: Shows spine grossly in the midline. Normal-appearing cervical lordotic curvature. There is slightly increased thoracic kyphosis, some minor flattening of the lumbar lordotic curvature. Lumbar paraspinous muscles show symmetrical on inspection, on palpation shows some moderate tenderness diffusely throughout the upper, middle and lower distribution of the paraspinous muscles, but without specific trigger points, without radiation of pain. The patient has good rot ational motion of the lumbar spine, both laterally as well as extension and flexion with significant tenderness with extension and axial loading lumbar spine bilaterally with extension greater than 10 degrees forward flexion 45 degrees performed without significant difficulty right left lateral rotation is tender bilaterally as well but not to the extent extension creates. EXTREMITIES: Lower extremities show deep tendon reflexes 2+ in the patellar and tendo calcaneus tendons. Motor exam is 4 on a scale of 5 with right dorsiflexion, extension, quadriceps and hamstring flexion and 4/5 on the left. Peripheral pulses are 1 posterior tibial. No peripheral edema is noted bilaterally. Lower extremities are warm and dry to touch, equal in color and appearance. SKIN: Shows warm and dry, good turgor. No edema. No sores, rashes or bruising throughout. Procedure: Procedure: Options discussed with patient. Patient's old chart was reviewed his current medication regimen updated current review of systems updated today as well. We will proceed with bilateral L4-5 and L5-S1 facet medial branch blocks today with fluoroscopic guidance. Risks were discussed including but not limited to: Bleeding, infection, possibility of epidural hematoma and subsequent neurological compromise, dural puncture, headaches, spinal cord and/or nerve damage, side effects of steroid medication, and poor results regarding pain control. Patient understands and wished to proceed. Patient return to clinic in approximately 2 weeks for follow-up, was counseled as to return appointment, activity level, and side effects to be aware of. Medication Injected: Med Injected: Under sterile prep and drape using C-arm fluoroscopic guidance AP and lateral and oblique views, bilateral L4-5 and L5-S1 facet joint MB's injections were performed, using 22-gauge quinke needles with stylette's x4,, medications injected: 20 mg dexamethasone +4 cc 0.25% bupivacaine +2 cc contrast. Condition at discharge is stable, patient tolerated the procedure well and no complications. Condition at Discharge: Condition at Discharge: Condition at discharge is stable, patient tolerated procedure well had no complications. BONY LEON MD September 19, 2021 08:56
--- NOTE | 2021-09-19 09:30 | PDOC ---
Progress Note - Pain Clinic Date of Service: DOS: DATE: 09/19/21 TIME: 09: Diagnosis: Dx: Lumbar radiculopathy with lumbar degenerative disease and lumbar spinal stenosis History or Present Illness: HPI: 63-year-old male returns for follow-up status post lumbar epidural steroid injection x1. Patient reports about 50% improvement but very short-lived and the pain has not across the low back but more only on the right side this time and only in the right leg patient reports the left side is cleared up fairly well but the right side still significant pain posterior gluteus lateral thigh anterior thigh medial thigh medial lower leg into the medial knee as well as the thigh on the right side worse with walking standing changing positions patient reports initially the first few days he was doing better with distance walking doing household activities and try with greater ease but now is significantly i ncreased in the right leg waking him from sleep at night about every 4-5 hours rates the pain as a 9 on scale 10 is worse over the past week 8 on average 5 to [place] is 8 today patient went to stabbing type and constant with walking and standing better with sitting lying down but again disturbing sleep significantly. Patient reports no loss of motor function no bowel or bladder incontinence. Physical Exam: VS: Blood pressure is 139/71 pulse 61 respirations 18 temperature 98.2 F height is 6 feet 1 inch weight is 222 pounds. PE: PHYSICAL EXAMINATION: GENERAL: The patient is awake, alert, oriented, appropriate, very pleasant in demeanor HEENT: Shows normocephalic, atraumatic. Extraocular movements are intact and symmetrical. Oral cavity: Mucous membranes moist and pink. Dentition is intact. NECK: Shows anterior throat supple without palpable lymphadenopathy noted. Swallow reflex symmetrical. CHEST: Shows normal on inspection. Breath sounds are clear bilaterally, no rales rhonchi or wheezes auscultated. HEART: Shows S1, S2 clear. No murmurs auscultated. ABDOMEN: Soft, nontender, nondistended. No palpable organomegaly is noted. BACK: Shows spine grossly in the midline. Normal-appearing cervical lordotic curvature. There is slightly increased thoracic kyphosis, some mild flattening of the lumbar lordotic curvature. Lumbar paraspinous muscles show symmetrical on inspection, on palpation shows some moderate tenderness diffusely throughout the upper, middle and lower distribution of the paraspinous muscles, but without specific trigger points, without radiation of pain. The patient has good rotational motion of the lumbar spine, both laterally as well as extension and flexion without significant difficulty. EXTREMITIES: Lower extremities show deep tendon reflexes 2 in the patellar and tendo calcaneus tendons. Motor exam is 4 on a scale of 5 with right dorsiflexion, extension, quadriceps and hamstring flexion and 5/5 on the left. Peripheral pulses are 1+ posterior tibial. No peripheral edema is noted bilaterally. Lower extremities are warm and dry to touch, equal in color and appearance. SKIN: Shows warm and dry, good turgor. No edema. No sores, rashes or bruising throughout. Procedure: Procedure: Options were discussed with the patient. Patient's old chart was reviewed as was his current medication regimen updated current review of systems updated today as well. We will proceed with a right L4-5 transforaminal lumbar epidural steroid injection today with fluoroscopic guidance. Risks were discussed including but not limited to: Bleeding, infection, possibility of epidural hematoma and subsequent neurological compromise, dural puncture, headaches, spinal cord and/or nerve damage, side effects of steroid medication, potential injection of vertebral artery at that level and permanent ischemic damage, and poor results regarding pain control. Patient understands and wished to proceed. Patient return to clinic in approximately 4 weeks for follow-up and was counseled as to return appointment activity level and side effects to be aware of. Medication Injected: Med Injected: Under sterile prep and drape patient was placed in prone position using C-arm fluoroscopic guidance to identify the L4-5 distribution oblique and slightly cephalad angled C arm. The right L4-5 target was identified and using lidocaine for anesthetizing the skin 22-gauge Marcelo pencil point needle was then used to enter the skin and into the subcutaneous tissues using direct C-arm fluoroscopic guidance to guide the needle into the transforaminal aspect of the right L4-5 vertebrae this was confirmed with lateral views showing the needle tip in the superior aspect of the paravertebral region. Aspiration was noted to be negative, -1.5 cc of contrast was then injected with good spread both medi ally into the epidural space as well as laterally along the nerve root without uptake and without distribution and uptake on digital subtraction. At this time, a solution containing 2 cc of 0.25% bupivacaine and 20 mg dexamethasone was then injected. Needle was withdrawn and sterile bandage was applied. Patient tolerated procedure well had no immediate complications Condition at Discharge: Condition at Discharge: Condition at discharge stable, patient tolerated the procedure well and had no complications. BONY LEON MD September 19, 2021 09:30
--- NOTE | 2021-09-19 09:30 | PDOC4 ---
Procedure Note: ICD 10 Code: ICD 10 Code: M54.16 M51.36 M48.06 Procedure Note: Patient was consented for right L4-5 transforaminal epidural steroid injection with fluoroscopic guidance risks were discussed including but not limited to: Bleeding, infection, possibility of epidural hematoma and subsequent neurological compromise, dural puncture, headaches, spinal cord and/or nerve damage, side effects of steroid medication, potential injection into the vertebral artery at that level and permanent ischemic damage, and poor results regarding pain control. Patient understands and wished to proceed. Under sterile prep and drape patient was placed in prone position using C-arm fluoroscopic guidance to identify the L4-5 distribution oblique and slightly cephalad angled C arm. The right L4-5 target was identified and using lidocaine for anesthetizing the skin 22-gauge Marcelo pencil point needle was then used to enter the skin and into the subcutaneous tissues using direct C-arm fluoroscopic guidance to guide the needle into the transforaminal aspect of the right L4-5 vertebrae this was confirmed with lateral views showing the needle tip in the superior aspect of the paravertebral region. Aspiration was noted to be negative, -1.5 cc of contrast was then injected with good spread both medially into the epidural space as well as laterally along the nerve root without uptake and without distribution and uptake on digital subtraction. At this time, a solution containing 2 cc of 0.25% bupivacaine and 20 mg dexamethasone was then injected. Needle was withdrawn and sterile bandage was applied. Patient tolerated procedure well had no immediate complications BONY LEON MD September 19, 2021 09:30
--- NOTE | 2021-09-19 10:05 | FMN ---
PT PROBLEMS Note documented at time 930, is for different patient. BONY LEON MD September 19, 2021 10:05
== END | disposition home or self-care (01) ==
LOC: PNCL 08:07
PROVIDERS: ATTEND Anesthesiology
DX: M51.16 Intervertebral disc disorders with radiculopathy, lumbar region (principal); M47.26 Other spondylosis with radiculopathy, lumbar region; M47.27 Other spondylosis with radiculopathy, lumbosacral region; M47.816 Spondylosis without myelopathy or radiculopathy, lumbar region; M48.061 Spinal stenosis, lumbar region without neurogenic claudication; Z79.82 Long term (current) use of aspirin; Z88.0 Allergy status to penicillin
CPT/HCPCS: 64483; 64493; 64494; J1100; J3490; Q9965